=== PATIENT | female | born 1945 | race Caucasian/White ===

== ENCOUNTER 2017-12-02 13:54 | Inpatient (IN) | payer MEDICARE ==
--- NOTE | 2017-12-02 14:13 | ED ---
Lower Extremity Injury HPI - General Source: patient, RN notes reviewed Mode of arrival: wheelchair Limitations: no limitations <Ilia Guevara - Last Filed: 12/02/17 14:41> <Adal Candelario - Last Filed: 12/02/17 20:02> - General Chief Complaint: Extremity Injury, Lower Stated Complaint: hip injury Time Seen by Provider: 12/02/17 14:05 - History of Present Illness Initial Comments: This is a 72-year-old female presents emergency Department chief complaint right hip pain. Patient states that her dog was running around and knocked her over onto her right hip. She denies any head injury. Patient states that she has an abrasion to her right elbow and complains of severe right hip pain. She denies any head injury, neck pain or any back pain. Patient states she cannot bear any weight on her right hip. Patient has had no prior orthopedic surgeries. (Ilia Guevara) - Related Data Home Medications Medication Instructions Recorded Confirmed Cholecalciferol (Vitamin D3) 2,000 unit PO DAILY 12/02/17 12/02/17 [Vitamin D3] Citalopram Hydrobromide [CeleXA] 40 mg PO DAILY 12/02/17 12/02/17 Levothyroxine Sodium [Synthroid] 112 mcg PO DAILY 12/02/17 12/02/17 Lisinopril [Zestril] 10 mg PO DAILY 12/02/17 12/02/17 Ranitidine HCl [Zantac] 150 mg PO DAILY 12/02/17 12/02/17 Allergies Allergy/AdvReac Type Severity Reaction Status Date / Time shrimp Allergy Swelling Verified 12/02/17 17:11 Review of Systems ROS Other: All systems not noted in ROS Statement are negative. <Ilia Guevara - Last Filed: 12/02/17 14:41> ROS Other: All systems not noted in ROS Statement are negative. <Adal Candelario - Last Filed: 12/02/17 20:02> ROS Statement: Those systems with pertinent positive or pertinent negative responses have been documented in the HPI. Past Medical History Past Medical History: Hypertension, Thyroid Disorder History of Any Multi-Drug Resistant Organisms: None Reported Past Surgical History: Tubal Ligation Past Psychological History: Anxiety, Depression Smoking Status: Current every day smoker Past Alcohol Use History: None Reported Past Drug Use History: Marijuana <PaolaIlia M - Last Filed: 12/02/17 14:41> - Past Family History Mother Family Medical History: Coronary Artery Disease (CAD) <Adal Candelario N - Last Filed: 12/02/17 20:02> General Exam Limitations: no limitations General appearance: alert, in no apparent distress Neck exam: Present: normal inspection, full ROM. Absent: tenderness, meningismus, lymphadenopathy Respiratory exam: Present: wheezes. Absent: respiratory distress, rales, rhonchi, stridor, chest wall tenderness Cardiovascular Exam: Present: regular rate, normal rhythm, normal heart sounds. Absent: systolic murmur, diastolic murmur, rubs, gallop, clicks GI/Abdominal exam: Present: soft, normal bowel sounds. Absent: distended, tenderness, guarding, rebound, rigid Extremities exam: Present: other (Small abrasion to the right elbow region, full range of motion of upper extremities, tenderness of the right hip, patient is in a flexed position limited range of motion secondary pain) Back exam: Present: full ROM. Absent: tenderness, paraspinal tenderness, vertebral tenderness Neurological exam: Present: alert, oriented X3, CN II-XII intact, reflexes normal. Absent: motor sensory deficit Skin exam: Present: warm, dry, intact, normal color. Absent: rash <PaolaIlia M - Last Filed: 12/02/17 14:41> Vital Signs 12/02/17 12/02/17 12/02/17 14:00 14:20 15:28 Temperature 98.7 F 98.5 F Pulse Rate 69 71 Pulse Rate [ 69 Right Dorsalis Pedis] Respiratory 16 12 18 Rate Blood Pressure 132/67 138/66 O2 Sat by Pulse 97 97 97 Oximetry 12/02/17 15:57 Temperature 98.6 F Pulse Rate Pulse Rate [ Right Dorsalis Pedis] Respiratory Rate Blood Pressure O2 Sat by Pulse Oximetry Medical Decision Making <PaolaIlia Kline - Last Filed: 12/02/17 14:41> - Lab Data Result diagrams: 12/02/17 14:46 12/02/17 14:46 <Adal Candelario N - Last Filed: 12/02/17 20:02> - Lab Data Lab Results 12/02/17 12/02/17 12/02/17 Range/Units 14:46 14:46 14:46 WBC 23.1 H (3.8-10.6) k/uL RBC 4.41 (3.80-5.40) m/uL Hgb 13.2 (11.4-16.0) gm/dL Hct 41.4 (34.0-46.0) % MCV 93.9 (80.0-100.0) fL MCH 29.9 (25.0-35.0) pg MCHC 31.9 (31.0-37.0) g/dL RDW 13.1 (11.5-15.5) % Plt Count 386 (150-450) k/uL Neutrophils % 87 % Lymphocytes % 6 % Monocytes % 6 % Eosinophils % 1 % Basophils % 0 % Neutrophils # 20.0 H (1.3-7.7) k/uL Lymphocytes # 1.4 (1.0-4.8) k/uL Monocytes # 1.4 H (0-1.0) k/uL Eosinophils # 0.1 (0-0.7) k/uL Basophils # 0.1 (0-0.2) k/uL PT 10.2 (9.0-12.0) sec INR 1.0 (<1.2) APTT 24.7 (22.0-30.0) sec Sodium 134 L (137-145) mmol/L Potassium 4.4 (3.5-5.1) mmol/L Chloride 103 (98-107) mmol/L Carbon Dioxide 23 (22-30) mmol/L Anion Gap 8 mmol/L BUN 13 (7-17) mg/dL Creatinine 0.82 (0.52-1.04) mg/dL Est GFR (CKD-EPI)AfAm 82 (>60 ml/min/1.73 sqM) Est GFR (CKD-EPI)NonAf 71 (>60 ml/min/1.73 sqM) Glucose 104 H (74-99) mg/dL Calcium 9.1 (8.4-10.2) mg/dL Total Bilirubin 0.3 (0.2-1.3) mg/dL AST 20 (14-36) U/L ALT 27 (9-52) U/L Alkaline Phosphatase 49 (38-126) U/L Total Protein 6.4 (6.3-8.2) g/dL Albumin 3.7 (3.5-5.0) g/dL - EKG Data EKG Comments: EKG performed at 14:36 normal sinus rhythm with a rate of 74 NH 146 QRS 78 QT/ QTC 378/419 (Ilia Guevara) Disposition Time of Disposition: 14:22 <Ilia Guevara - Last Filed: 12/02/17 14:41> <Adal Candelario - Last Filed: 12/02/17 20:02> Clinical Impression: Closed right hip fracture Disposition: ADMITTED IP TO THIS [facility] Condition: Stable
[2017-12-02] MEDS ORDERED: ONDANSETRON 4 MG/2 ML VIAL IVP STA (14:21)
[2017-12-02] MEDS ORDERED: MORPHINE SULFATE 4 MG/ML SYRINGE IVP STA (14:21)
[2017-12-02] MEDS ORDERED: HYDROcodone/APAP 5-325MG 1 EACH TAB PO PRN (14:22)
[2017-12-02] MEDS ORDERED: NALOXONE 0.4 MG/ML 1 ML VIAL IV PRN (14:22)
[2017-12-02] MEDS ORDERED: ONDANSETRON 4 MG/2 ML VIAL IVP PRN (14:22)
[2017-12-02] MEDS ORDERED: LORazepam 2 MG/ML INJ IV PRN (14:22)
[2017-12-02] MEDS ORDERED: DIPH,PERTUS(ACELL)TETVAC-LF 0.5 ML VIAL IM ONE (14:23)
--- NOTE | 2017-12-02 14:27 | XR ---
EXAMINATION TYPE: AP view pelvis and 2 views right hip DATE OF EXAM: 12/02/2017 COMPARISON: NONE HISTORY: FINDINGS: Moderate superolateral joint space narrowing at the right hip. There is an angulated and impacted fra cture of the base of the cervical right femoral neck. IMPRESSION: Impacted and angulated basicervical fracture right femoral neck. Underlying mild to moderate right hi p OA.
--- NOTE | 2017-12-02 14:55 | XR ---
EXAMINATION TYPE: XR chest 1V DATE OF EXAM: 12/02/2017 COMPARISON: NONE HISTORY: 72-year-old female preop clearance for hip fracture, pain TECHNIQUE: Single frontal view of the chest is obtained. FINDINGS: Heart normal size. Elongation/ectasia of the thoracic aorta with episodic calcifications. Diffuse int erstitial prominence has a chronic appearance. AP peripheral lung densities related to overlying soft tissue. No consolidation or pleural effusion. IMPRESSION: Chronic changes and tortuous/ectatic thoracic aorta. No acute process seen.
[2017-12-02 14:58] LABS: Basophils # (A) 0.1 k/uL (0-0.2); Basophils % (A) 0 %; Eosinophils # (A) 0.1 k/uL (0-0.7); Eosinophils % (A) 1 %; HCT 41.4 % (34.0-46.0); HGB 13.2 gm/dL (11.4-16.0); Lymphocytes # (A) 1.4 k/uL (1.0-4.8); Lymphocytes % (A) 6 %; MCH 29.9 pg (25.0-35.0); MCHC 31.9 g/dL (31.0-37.0); MCV 93.9 fL (80.0-100.0); Mean Platelet Volume 6.3; Monocytes # (A) 1.4 k/uL (0-1.0); Monocytes % (A) 6 %; Neutrophils % (A) 87 %; Platelet Count 386 k/uL (150-450); RBC 4.41 m/uL (3.80-5.40); RDW 13.1 % (11.5-15.5); WBC 23.1 k/uL (3.8-10.6)
[2017-12-02 15:10] LABS: Albumin 3.7 g/dL (3.5-5.0); Calcium 9.1 mg/dL (8.4-10.2); Potassium 4.4 mmol/L (3.5-5.1); Total Bilirubin 0.3 mg/dL (0.2-1.3); Total Protein 6.4 g/dL (6.3-8.2)
[2017-12-02 15:12] LABS: Partial Thromboplastin Time 24.7 sec (22.0-30.0); Prothrombin Time 10.2 sec (9.0-12.0)
[2017-12-02 15:30] LABS: Appearance,Urine Clear (Clear); Bilirubin,Urine Negative (Negative); Blood,Urine Negative (Negative); Color,Urine Yellow; Glucose,Urine (UA) Negative (Negative); Ketones,Urine Negative (Negative); Leukocyte Esterase,Urine Negative (Negative); Nitrite,Urine Negative (Negative); PH, Urine 5.5 (5.0-8.0); Protein,Urine Negative (Negative); Specific Gravity,Urine 1.016 (1.001-1.035); Urobilinogen,Urine <2.0 mg/dL (<2.0)
--- NOTE | 2017-12-02 15:52 | CT ---
EXAMINATION TYPE: CT hip RT wo con DATE OF EXAM: 12/02/2017 COMPARISON: Radiograph same day HISTORY: 72-year-old female Right hip pain TECHNIQUE: Contiguous axial scanning of the right hip without IV contrast. Coronal and sagittal recon structions performed. CT DLP: 392 mGycm Automated exposure control for dose reduction was used. FINDINGS: Redemonstrated impacted and angulated basicervical fracture of the femoral neck. There is fracture ex tension into the intertrochanteric region, for example, refer to coronal image 18 and coronal image 2 0. There is no disruption of the lateral wall but there is some posteromedial fracture extension. Add itional comminution extends along the superior margin of the femoral neck to the head neck junction, referred to coronal image 19. Associated soft tissue swelling. Rossi catheter is present. IMPRESSION: 1. IMPACTED AND ANGULATED BASICERVICAL FRACTURE OF THE FEMORAL NECK. 2. HOWEVER, THERE IS FRACTURE EXTENSION INTO THE INTERTROCHANTERIC REGION. THE LATERAL WALL IS INTACT BUT FRACTURE EXTENDS TO THE POSTEROMEDIAL ASPECT. 3. THERE IS ADDITIONAL COMMINUTION EXTENDING ALONG THE SUPERIOR MARGIN OF THE FEMORAL NECK TO THE FEM ORAL HEAD NECK JUNCTION. 4. MODERATE TO SEVERE FOCAL JOINT SPACE NARROWING ALONG THE WEIGHTBEARING ASPECT OF THE HIP JOINT.
[2017-12-02 17:10] VITALS: BMI 24.7
[2017-12-02] MEDS: MORPHINE SULFATE 4 MG/ML SYRINGE IV PRN ×2 (17:16→22:07)
[2017-12-02] MEDS: SODIUM CHLORIDE 0.9% 1,000 ML IV SCH (20:51)
[2017-12-02] MEDS: FAMOTIDINE 20 MG/2 ML VIAL IV SCH (20:51)
[2017-12-03] MEDS: MORPHINE SULFATE 4 MG/ML SYRINGE IV PRN ×2 (03:37→07:36)
[2017-12-03] MEDS: LEVOTHYROXINE 112 MCG TAB PO SCH (06:15)
--- NOTE | 2017-12-03 07:23 | P.CONS ---
History of Present Illness - Reason for Consult Consult date: 12/03/17 - Chief Complaint Hip pain - History of Present Illness 72 years old female with past medical history of hypothyroidism, hypertension, depression presents in after a mechanical fall when her dog tripped her over. Patient is still very functionally active patient does activities including lawn maintenance, taking care of her grandkids, doesn't use any cane or walker at baseline. Patient denies any history of angina, shortness of breath, palpitation, recent syncope, history of cancer. Patient was brought in by her cousin due to increased hip pain following the fall on the right hip. On evaluation patient is in significant pain on movement and avoids any movement in the bed to prevent the pain. 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 EKG was done which is normal sinus rhythm with no bundle branch block was stopped at team is consulted for medical clearance prior to surgery. Patient denies any history of stress test or echocardiogram done in the past. Had no recent admission in the past year. Review of Systems Constitutional: Denies chills, Denies fever, Denies lethargy, Denies malaise, Denies poor appetite, Denies weakness, Denies weight loss Eyes: denies decreased vision, denies diplopia, denies discharge, denies pain Ears: deny: decreased hearing Ears, nose, mouth and throat: Denies dental pain, Denies headache, Denies nasal discharge, Denies nose pain Cardiovascular: Denies chest pain, Denies decreased exercise tolerance, Denies edema, Denies high blood pressure, Denies irregular heart beat, Denies palpitations, Denies paroxysmal nocturnal dyspnea, Denies rapid heart beat, Denies shortness of breath Respiratory: Denies congestion, Denies cough, Denies cough with sputum, Denies dyspnea, Denies home oxygen, Denies wheezing Gastrointestinal: Denies abdominal pain, Denies change in bowel habits, Denies coffee ground emesis, Denies early satiety, Denies excessive gas, Denies heartburn, Denies hematemesis, Denies hematochezia, Denies loss of appetite, Denies nausea, Denies vomiting Genitourinary: Denies dysuria, Denies flank pain, Denies kidney stones, Denies menorrhagia, Denies urgency, Denies urinary frequency Musculoskeletal: Endorses endorses gait dysfunction, Denies limitation of motion , endorses hip pain Denies morning stiffness, Denies muscle cramps Integumentary: Denies rash, Denies wounds, Denies brittle nails, Denies change in hair/nails, Denies darkening of skin Neurological: Denies change in speech, Denies double vision, Denies gait dysfunction, Denies loss of vision, Denies numbness, Denies paralysis, Denies paresthesias, Denies seizures Psychiatric: Denies anxiety, Denies depression Endocrine: Denies excessive sweating, Denies excessive thirst, Denies high blood sugars, Denies palpitations Hematologic/Lymphatic: Denies easy bruising, Denies lymphadenopathy Past Medical History Past Medical History: Hypertension, Thyroid Disorder History of Any Multi-Drug Resistant Organisms: None Reported Past Surgical History: Tubal Ligation Past Anesthesia/Blood Transfusion Reactions: No Reported Reaction Past Psychological History: Anxiety, Depression Smoking Status: Current every day smoker (Smokes one pack a day for more than 60 years) Past Alcohol Use History: None Reported Past Drug Use History: Marijuana Additional History: Patient lives alone, does not use cane or walker or oxygen. - Past Family History Mother Family Medical History: Coronary Artery Disease (CAD) (At the age 65) Sister(s) Family Medical History: Cancer (Other Sr. at the age of 70 from liver cancer), Coronary Artery Disease (CAD) (History that at age of 45 from coronary artery disease) Father Family Medical History: Coronary Artery Disease (CAD) ( at the age of 65) Son(s) Family Medical History: Cancer ( at the age of 45) Daughter(s) Family Medical History: Unable to Obtain (Daughter from drug overdose) Medications and Allergies Home Medications Medication Instructions Recorded Confirmed Type Cholecalciferol (Vitamin D3) 2,000 unit PO DAILY 12/02/17 12/02/17 History [Vitamin D3] Citalopram Hydrobromide [CeleXA] 40 mg PO DAILY 12/02/17 12/02/17 History Levothyroxine Sodium [Synthroid] 112 mcg PO DAILY 12/02/17 12/02/17 History Lisinopril [Zestril] 10 mg PO DAILY 12/02/17 12/02/17 History Ranitidine HCl [Zantac] 150 mg PO DAILY 12/02/17 12/02/17 History Allergies Allergy/AdvReac Type Severity Reaction Status Date / Time shrimp Allergy Swelling Verified 12/02/17 17:11 Physical Exam Vitals: Vital Signs Temp Pulse Pulse Pulse Resp BP BP 12/03/17 00:14 98.3 F 78 16 111/66 12/02/17 20:00 98.4 F 69 16 124/73 12/02/17 15:57 98.6 F 12/02/17 15:28 71 18 138/66 12/02/17 14:20 98.5 F 69 12 12/02/17 14:00 98.7 F 69 16 132/67 Pulse Ox 12/03/17 00:14 94 L 12/02/17 20:00 94 L 12/02/17 15:57 12/02/17 15:28 97 12/02/17 14:20 97 12/02/17 14:00 97 Intake and Output 12/02/17 12/03/17 12/03/17 22:59 06:59 14:59 Output Total 800 1750 Balance -800 -1750 Output: Urine 800 1750 Other: Voiding Method Indwelling Catheter Weight 61.235 kg - Constitutional General appearance: cooperative, no acute distress, obese - EENT Eyes: anicteric sclerae, PERRLA, normal appearance ENT: hearing grossly normal - Neck Neck: no lymphadenopathy, normal ROM, no other, no rigidity, no stridor, no thyromegaly - Respiratory Respiratory: bilateral: CTA, negative: diminished, dullness, rales, rhonchi - Cardiovascular Rhythm: regular Heart sounds: normal: S1, S2 Abnormal Heart Sounds: no systolic murmur, no diastolic murmur, no rub, no S3 Gallop, no S4 Gallop, no click, no other - Gastrointestinal General gastrointestinal: normal bowel sounds, soft - Integumentary Integumentary: no rash - Neurologic Neurologic: CNII-XII intact - Musculoskeletal Musculoskeletal: Laying comfortably in bed with significant movement on moving the right leg on abduction or adduction or flexion or extension. Able to move her toes without any difficulty denies any numbness or tingling in the lower extremity - Psychiatric Psychiatric: A&O x's 3, appropriate affect Results CBC & Chem 7: 12/02/17 14:46 12/02/17 14:46 Labs: Abnormal Lab Results - Last 24 Hours (Table) 12/02/17 12/02/17 Range/Units 14:46 14:46 WBC 23.1 H (3.8-10.6) k/uL Neutrophils # 20.0 H (1.3-7.7) k/uL Monocytes # 1.4 H (0-1.0) k/uL Sodium 134 L (137-145) mmol/L Glucose 104 H (74-99) mg/dL Assessment and Plan Plan: #1 right hip pain secondary to fracture of the femoral neck extending to the intertrochanteric region. Patient is scheduled for surgery this morning systolic she is medically cleared to undergo surgery does have a low cardiac risk less than 1% for cardiac events. EKG is normal sinus rhythm. Patient never had any chest pain or shortness of breath to suspect cardiac etiology but does have significant family history of coronary artery disease, age that puts her at some risk. Incentive spirometry. Pain management per primary team #2 hypothyroidism continue Synthyroid. TSH and T4 ordered. #3 leukocytosis of unclear etiology likely secondary to dehydration as patient' s previous leukocytes has been normal. Repeat CBC this morning is pending. #4 hypertension continue lisinopril #5 DVT prophylaxis post surgery per primary team continue SCDs for now #6 GI prophylaxis with Pepcid 20 mg daily #7 CODE STATUS full code Patient is medically cleared for surgery. Thank you for the consult. We will be happy to assist in patient's medical needs that the patient is in the hospital
[2017-12-03] MEDS: FAMOTIDINE 20 MG/2 ML VIAL IV SCH ×2 (07:38→21:50)
[2017-12-03] MEDS: SODIUM CHLORIDE 0.9% 1,000 ML IV SCH (07:38)
[2017-12-03 07:43] LABS: Basophils # (A) 0.1 k/uL (0-0.2); Basophils % (A) 0 %; Eosinophils # (A) 0.2 k/uL (0-0.7); Eosinophils % (A) 1 %; HCT 38.5 % (34.0-46.0); HGB 12.7 gm/dL (11.4-16.0); Lymphocytes # (A) 1.3 k/uL (1.0-4.8); Lymphocytes % (A) 10 %; MCH 30.9 pg (25.0-35.0); MCHC 33.1 g/dL (31.0-37.0); MCV 93.2 fL (80.0-100.0); Mean Platelet Volume 6.5; Monocytes # (A) 1.1 k/uL (0-1.0); Monocytes % (A) 8 %; Neutrophils # (A) 10.8 k/uL (1.3-7.7); Neutrophils % (A) 80 %; Platelet Count 326 k/uL (150-450); RBC 4.13 m/uL (3.80-5.40); RDW 13.2 % (11.5-15.5); WBC 13.5 k/uL (3.8-10.6)
[2017-12-03 07:52] LABS: Anion Gap 7 mmol/L; Blood Urea Nitrogen 8 mg/dL (7-17); Calcium 8.7 mg/dL (8.4-10.2); Carbon Dioxide 24 mmol/L (22-30); Chloride 104 mmol/L (98-107); Glucose 107 mg/dL (74-99); Potassium 4.6 mmol/L (3.5-5.1); Sodium 135 mmol/L (137-145)
[2017-12-03] MEDS ORDERED: ePHEDrine SULFATE/0.9% NACL/PF 50 MG/5 ML SYRINGE IV ONE (08:30)
[2017-12-03] MEDS ORDERED: PHENYLEPHRINE-0.9% NACL SYG 1 MG/10 ML SYRINGE ONE (08:30)
[2017-12-03] MEDS ORDERED: MIDAZOLAM 2 MG/2 ML VIAL ONE (08:30)
[2017-12-03] MEDS ORDERED: IV FLUID CONTINUATION 950 ML IV ONE ×2 (08:30)
[2017-12-03] MEDS ORDERED: PROPOFOL 10 MG/ML 20 ML VIAL IV ONE (08:30)
[2017-12-03] MEDS ORDERED: fentaNYL (PF) 50 MCG/ML 2 ML AMP ONE (08:30)
[2017-12-03] MEDS ORDERED: traMADol 50 MG TAB PO PRN (08:33)
[2017-12-03] MEDS ORDERED: HYDROcodone/APAP 7.5-325MG 1 EACH TAB PO PRN (08:33)
[2017-12-03] MEDS ORDERED: MAGNESIUM HYDROXIDE 2,400 MG/10 ML CUP PO PRN (08:33)
[2017-12-03] MEDS ORDERED: HYDROmorphone 1 MG/ML 1 ML SYRINGE IVP PRN ×2 (08:33)
[2017-12-03] MEDS ORDERED: TEMAZEPAM 15 MG CAP PO PRN (08:33)
[2017-12-03] MEDS ORDERED: SODIUM CHLORIDE 0.9% 50 ML with ceFAZolin 2,000 MG IV ONE ×2 (08:45)
[2017-12-03] MEDS ORDERED: ceFAZolin 1,000 MG in SODIUM CHLORIDE 0.9% 1,000 ML IRRIGATION ONE (09:19)
--- NOTE | 2017-12-03 09:56 | XR ---
EXAMINATION TYPE: XR Hip Limited RT, FL guidance operating room DATE OF EXAM: 12/03/2017 COMPARISON: NONE HISTORY: 72-year-old female right hip fracture fixation FINDINGS: Intramedullary nail and screw fixation of the proximal right femoral fracture. Proximal portion of th e intramedullary nail appears somewhat superior in position. FLUOROSCOPY Fluoroscopy time of 1 minute 45 seconds was used during right proximal femoral fixation. 3 image/s d ocument/s the procedure. IMPRESSION: Intraoperative fluoroscopy as above.
--- NOTE | 2017-12-03 09:58 | HP ---
HISTORY AND PHYSICAL DATE OF VISIT: December 03, 2017. CHIEF COMPLAINT: Right hip pain. HISTORY OF PRESENT ILLNESS: Elba is a very pleasant 72-year-old female who lives independently at home by herself. Yesterday, she had a mixup with her dog and she fell onto her right hip. She had right hip pain, was unable ambulate. She was brought to [facility] via ambulance. Workup including x-rays revealed a right basicervical/intertrochanteric hip fracture. She was admitted to my service for management of her hip fracture. MEDICAL HISTORY: Coronary artery disease, hypertension, thyroid disorder. SURGICAL HISTORY: She had tubal ligation. SOCIAL HISTORY: Smoking stasis: She is a current everyday smoker. MEDICATIONS: Levothyroxine, lisinopril, citalopram. PHYSICAL EXAM: T-max 98.7, blood pressure 132/67, pulse 69. White count 23.1, hemoglobin 13.2, platelets 386. INR is 1.0. Examination: She has no pain with palpation. Range of motion of all long bones and joints with the exception of the right hip. The skin over the right hip is intact with no evidence of breakdown. She has no pain with palpation of the distal femur, the knee, the tibia, fibula, or the ankle or foot. She has intact flexion-extension, inversion-eversion of the ankle. She has intact flexion-extension of all of her toes. She has intact sensation to the medial, lateral, plantar and 1st dorsal web space of the foot. She has brisk capillary refill in all digits. X-RAYS: X-rays and CT scan reviewed. She has a very low basicervical with extension into the hip fracture with extension into the intertrochanteric region. IMPRESSION: Right intertrochanteric hip fracture. RECOMMENDATIONS: I had a long discussion with Elba with regard to treatment options. She is an independent ambulator. The strong recommendation was to proceed forward with intramedullary hip screw fixation for right basicervical/intertrochanteric hip fracture. The risks were discussed in detail. These risks include, but are not limited to risk of infection, nerve damage, bleeding, pain, and a small risk of deep vein thrombosis which could lead to fatal pulmonary embolism. Further risks include failure of the implant and failure of the fracture to heal, both of which could necessitate further surgery for her hip fracture. All of these questions with regards to the risks of the procedure were answered to her satisfaction. Appropriate informed consent was obtained. We will proceed forward later this morning with fixation for her right hip fracture. All of her questions were answered to her satisfaction. JACKSON / MAVIS: [id number] /
[2017-12-03] MEDS ORDERED: SODIUM CHLORIDE 0.9% 1,000 ML IV ONE (10:06)
[2017-12-03] MEDS ORDERED: ONDANSETRON 4 MG/2 ML VIAL IVP ONE (10:19)
--- NOTE | 2017-12-03 10:43 | OP ---
OPERATIVE REPORT DATE OF PROCEDURE: December 03, 2017. PREOPERATIVE DIAGNOSIS: Right basicervical/intertrochanteric hip fracture. POSTOPERATIVE DIAGNOSIS: Right basicervical/intertrochanteric hip fracture. PROCEDURE: Right intramedullary hip screw fixation for right intertrochanteric hip fracture. SURGEON: Wai Gold MD. UNDERWRITING CONSULTANT: MIKA Redmond. ANESTHESIA: Spinal with sedation. ESTIMATED BLOOD LOSS: 100 mL. TOURNIQUET: None. DRAINS: None. COMPLICATIONS: None apparent. DISPOSITION: Postanesthesia care unit. INDICATIONS: Joanne is a very pleasant 72-year-old female. She is an independent ambulator. She slipped over her dogs at home. She fell onto her right hip. She is brought to [facility] via ambulance. Workup including x-rays revealed a right intertrochanteric hip fracture. She is independent ambulator at home. Recommendation was for intramedullary hip screw fixation for right intertrochanteric hip fracture. The risks of procedure were discussed with her in detail. These risks include, but are not limited to risk of infection, nerve damage, bleeding, pain and risk of small risk of deep vein thrombosis which could lead to fatal pulmonary embolism. Further risks include failure of the hardware or failure of the fracture to heal both of which could necessitate further surgical procedures. All of Joanne's questions with regards to the procedure were answered to her satisfaction. Appropriate informed consent was obtained. DESCRIPTION OF PROCEDURE: The patient identified in preoperative holding area. Surgical sites marked by both the patient and myself. She was given 2 g of Ancef IV for prophylactic purposes. She was then transported to the operative suite. She was placed supine on the operative table. General anesthetic was administered dosed per the Anesthesia Department without apparent complication. She was then placed onto the fracture table well-padded in preparation for surgery. The fracture was reduced with traction and rotation. The anatomic reduction was confirmed with fluoroscopic imaging. The patient's right lower extremity was then prepped and draped in usual sterile fashion. Standard surgical pause undertaken to ensure that we were operating the correct site and that appropriate preoperative antibiotics were given. All staff were in agreement and we proceeded. The tip of the greater trochanter was identified via fluoroscopy. A 2 to 3 cm incision extending from the tip of the greater trochanter proximally was made with a 15 blade scalpel. Dissection was then carried down sharply through the tensor fascia. The tensor fascia was incised in line with the skin incision. This gave me good access to the greater trochanter. The threaded guide pin was then placed on the medial aspect of the greater trochanter and was then advanced down the center of the femur. This was done under fluoroscopic guidance to ensure that it was proper placement of the pin. The starting reamer was then placed over the threaded guide pin. This was done to gain access to the proximal femur. The threaded guide pin was removed and a ball-tipped guidewire was then placed down the shaft of the femur. Intramedullary placement was confirmed with fluoroscopic imaging. I then proceeded to ream the femoral canal. I started with a 9 mm reamer and increased incrementally up to a 13 mm reamer to allow for exceptions of the gamma nail. The contracts representative then opened a 125 degree by 11 mm x 180 mm Luanne Gamma nail. This was assembled on the back table by the senior maintenance technician. The gamma nail was then inserted over the ball-tipped guidewire. The ball-tipped guidewire was then removed. I then made a small second incision on the lateral thigh. The hip screw guide was then placed flush against the lateral wall of the femur. The threaded guide pin was then advanced into the center of the femoral head on both AP and lateral views. The tip-apex distance was appropriate. This was confirmed with both AP and lateral views. I then measured and reamed with the reamer was set to 90 mm. The threaded guide pin was reamed under fluoroscopic imaging. I then had the contracts representative open a 90 mm partially-threaded cannulated hip screw. This was then placed over the threaded guide pin and then advanced into the center of the femoral head. The purchase was excellent. The screw was advanced deep into the center of the femoral head on both AP and lateral views. The tip-apex distance was appropriate. I then placed a set screw. I first compressed the fracture. I then placed the set screw and then the set screw was backed off 1/4 turn to allow for compression of the fracture. I then proceeded to place the distal static locking screw. A third small incision was made on the lateral thigh. A 37.5 mm x 5 mm static locking screw was then placed under standard technique. This was also placed under fluoroscopic guidance to ensure its placement through the nail and that was of appropriate length. At this point time no further work was deemed necessary. The final AP and lateral views were taken. The gamma nail was intramedullary. The distal interlocking screws of appropriate length and through the nail. The hip screw was placed deep into the center of the femoral head on both AP and lateral views. The tip-apex distance was appropriate and the fracture was compressed nicely. At this point time no further work was deemed necessary. The insertion guide was removed. The wounds were thoroughly irrigated with sterile saline solution with antibiotic added. The tensor fascia was closed with 0 Vicryl suture. The subcutaneous tissue closed with 2-0 Vicryl suture. The skin was closed with stainless steel josseline. All sponge and needle counts were deemed correct prior to closure. The patient tolerated the procedure without apparent complication. She was transferred recovery room in stable condition. JACKSON / MAVIS: [id number] /
[2017-12-03] MEDS: LISINOPRIL 10 MG TAB PO SCH (11:01)
[2017-12-03] MEDS: CHOLECALCIFEROL 1,000 UNIT TAB PO SCH (11:04)
[2017-12-03] MEDS: CITALOPRAM HYDROBROMIDE 20 MG TAB PO SCH (11:04)
[2017-12-03] MEDS: ASPIRIN 325 MG TAB PO SCH ×2 (11:04→21:50)
[2017-12-03] MEDS: HYDROmorphone 1 MG/ML 1 ML SYRINGE IVP PRN ×2 (11:19→13:30)
[2017-12-03] MEDS: ceFAZolin IN SWFI 2 GM/20 ML SYRINGE IVP SCH (15:02)
[2017-12-03] MEDS: HYDROcodone/APAP 7.5-325MG 1 EACH TAB PO PRN (19:23)
[2017-12-03] MEDS: SENNOSIDES-DOCUSATE SODIUM 1 EACH TAB PO SCH (21:50)
[2017-12-04] MEDS: SODIUM CHLORIDE 0.9% 1,000 ML IV SCH (00:11)
[2017-12-04] MEDS: ceFAZolin IN SWFI 2 GM/20 ML SYRINGE IVP SCH (00:11)
[2017-12-04] MEDS: HYDROcodone/APAP 7.5-325MG 1 EACH TAB PO PRN ×4 (00:30→17:57)
[2017-12-04] MEDS: LEVOTHYROXINE 112 MCG TAB PO SCH (05:22)
[2017-12-04 07:40] LABS: Basophils % (A) 0 %; Eosinophils # (A) 0.4 k/uL (0-0.7); Eosinophils % (A) 4 %; HCT 31.2 % (34.0-46.0); HGB 10.2 gm/dL (11.4-16.0); Lymphocytes # (A) 1.7 k/uL (1.0-4.8); Lymphocytes % (A) 17 %; MCH 31.5 pg (25.0-35.0); MCHC 32.9 g/dL (31.0-37.0); MCV 95.8 fL (80.0-100.0); Mean Platelet Volume 6.8; Monocytes % (A) 10 %; Neutrophils # (A) 6.8 k/uL (1.3-7.7); Neutrophils % (A) 67 %; Platelet Count 241 k/uL (150-450); RBC 3.25 m/uL (3.80-5.40); RDW 13.3 % (11.5-15.5); WBC 10.1 k/uL (3.8-10.6)
[2017-12-04] MEDS: LISINOPRIL 10 MG TAB PO SCH (09:03)
[2017-12-04] MEDS: CITALOPRAM HYDROBROMIDE 20 MG TAB PO SCH (09:03)
[2017-12-04] MEDS: ASPIRIN 325 MG TAB PO SCH ×2 (09:03→22:49)
[2017-12-04] MEDS: CHOLECALCIFEROL 1,000 UNIT TAB PO SCH (09:03)
[2017-12-04] MEDS: MULTIVITAMINS, THERA 1 EACH TAB PO SCH (09:03)
[2017-12-04] MEDS: FAMOTIDINE 20 MG/2 ML VIAL IV SCH ×2 (09:06→23:15)
--- NOTE | 2017-12-04 11:04 | P.PN ---
Subjective Progress Note Date: 12/04/17 72 years old female with past medical history of hypothyroidism, hypertension, depression presents in after a mechanical fall when her dog tripped her over. Patient is still very functionally active patient does activities including lawn maintenance, taking care of her grandkids, doesn't use any cane or walker at baseline. Patient denies any history of angina, shortness of breath, palpitation, recent syncope, history of cancer. Patient was brought in by her cousin due to increased hip pain following the fall on the right hip. On evaluation patient is in significant pain on movement and avoids any movement in the bed to prevent the pain. 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 EKG was done which is normal sinus rhythm with no bundle branch block was stopped at team is consulted for medical clearance prior to surgery. Patient denies any history of stress test or echocardiogram done in the past. Had no recent admission in the past year. 12/04 Patient is status post right intertrochanteric nail placement for right hip fracture. Pain is controlled with the pain medications. Patient denies any chest pain, shortness of breath, dizziness or lightheadedness. Still has a Rossi catheter in. Is encouraged to increase oral fluid intake. We'll stop IV fluids today. Leukocytosis is improved likely secondary to stress and dehydration. Objective - Vital Signs Vital signs: Vital Signs Temp 98.2 F 12/04/17 07:00 Pulse 85 12/04/17 07:00 Resp 18 12/04/17 07:00 BP 115/66 12/04/17 07:00 Pulse Ox 94 L 12/04/17 07:00 Intake & Output 12/03/17 12/04/17 12/04/17 18:59 06:59 18:59 Intake Total 1791 1200 240 Output Total 550 2500 Balance 1241 -1300 240 Intake: IV 1051 Intake, IV Titration 1200 Amount Sodium Chloride 0.9% 1, 1200 000 ml @ 75 mls/hr IV . [id number] ARLENE Rx#:[id number] Oral 740 240 Output: Urine 450 2500 Estimated Blood Loss 100 Other: Voiding Method Indwelling Catheter Indwelling Catheter Self-Catheterization - Exam - Constitutional General appearance: cooperative, no acute distress, obese - EENT Eyes: anicteric sclerae, PERRLA, normal appearance ENT: hearing grossly normal - Neck Neck: no lymphadenopathy, normal ROM, no other, no rigidity, no stridor, no thyromegaly - Respiratory Respiratory: bilateral: CTA, negative: diminished, dullness, rales, rhonchi - Cardiovascular Rhythm: regular Heart sounds: normal: S1, S2 Abnormal Heart Sounds: no systolic murmur, no diastolic murmur, no rub, no S3 Gallop, no S4 Gallop, no click, no other - Gastrointestinal General gastrointestinal: normal bowel sounds, soft - Integumentary Integumentary: no rash - Neurologic Neurologic: CNII-XII intact - Musculoskeletal Musculoskeletal: Laying comfortably in chair surgical site appears clear of infection, mild inflammation with overlying dressing Able to move her toes without any difficulty denies any numbness or tingling in the lower extremity, pulses palpable , neurovascular function intact - Psychiatric Psychiatric: A&O x's 3, appropriate affect - Labs CBC & Chem 7: 12/04/17 06:16 12/03/17 07:14 Labs: Abnormal Lab Results - Last 24 Hours (Table) 12/04/17 Range/Units 06:16 RBC 3.25 L (3.80-5.40) m/uL Hgb 10.2 L (11.4-16.0) gm/dL Hct 31.2 L (34.0-46.0) % Assessment and Plan Plan: #1 postoperative day one right hip pain secondary to fracture of the femoral neck extending to the intertrochanteric region status post a right intertrochanteric nail. Incentive spirometry. Pain management per primary team stop encourage mobilization. PTOT consult placed #2 hypothyroidism continue Synthyroid. TSH and T4 normal continue the current dose of Synthyroid #3 leukocytosis of unclear etiology likely secondary to dehydration/stress as patient's previous leukocytes has been normal. Resolved hold IV fluids #4 hypertension continue lisinopril, blood pressure stable #5 DVT prophylaxis on aspirin 325 mg twice a day #6 GI prophylaxis with Pepcid 20 mg daily #7 CODE STATUS full code
--- NOTE | 2017-12-04 13:52 | P.PN ---
Subjective Progress Note Date: 12/04/17 Principal diagnosis: S/P Right IT nail Patient is seen at bedside this morning. She is postop day #1 from Right IT nail for right hip fracture. She has pain at the surgical site as expected but denies any new complaints. He denies numbness, tingling or calf pain. Review of systems is negative for fever, chills, chest pain, shortness of breath or other Objective - Vital Signs Vital signs: Vital Signs Temp 98.2 F 12/04/17 07:00 Pulse 85 12/04/17 07:00 Resp 18 12/04/17 07:00 BP 115/66 12/04/17 07:00 Pulse Ox 94 L 12/04/17 07:00 Intake & Output 12/03/17 12/04/17 12/04/17 18:59 06:59 18:59 Intake Total 1791 1200 420 Output Total 550 2500 Balance 1241 -1300 420 Intake: IV 1051 Intake, IV Titration 1200 Amount Sodium Chloride 0.9% 1, 1200 000 ml @ 75 mls/hr IV . [id number] COUNTS INCLUDE 234 BEDS AT [facility] Rx#:[id number] Oral 740 420 Output: Urine 450 2500 Estimated Blood Loss 100 Other: Voiding Method Indwelling Catheter Indwelling Catheter Self-Catheterization - Exam Inspection reveals a benign surgical wound. There is no active bleeding or drainage. Neurovascular status is intact throughout the lower extremity with motor and sensation fully intact. Calf is soft and nontender. 2+ dorsalis pedis pulse and less than 2 second cap refill is present - Constitutional General appearance: Present: no acute distress - Psychiatric Psychiatric: Present: A&O x's 3, appropriate affect, intact judgment & insight - Labs CBC & Chem 7: 12/04/17 06:16 12/03/17 07:14 Labs: Abnormal Lab Results - Last 24 Hours (Table) 12/04/17 Range/Units 06:16 RBC 3.25 L (3.80-5.40) m/uL Hgb 10.2 L (11.4-16.0) gm/dL Hct 31.2 L (34.0-46.0) % Assessment and Plan (1) Closed right hip fracture Narrative/Plan: She will continue with routine postop orthopedic protocol including pain management, wound care, PT, DVT prophylaxis and medical management. Touchdown weightbearing with walker. Expect that she will transfer to home in next few days as she does not desire rehab. Current Visit: Yes Status: Acute Priority: Medium Code(s): S72.001A - FRACTURE OF UNSP PART OF NECK OF RIGHT FEMUR, INIT SNOMED Code(s): 499085481 Time with Patient: Less than 30
[2017-12-04] MEDS: SENNOSIDES-DOCUSATE SODIUM 1 EACH TAB PO SCH (22:49)
[2017-12-05] MEDS: HYDROcodone/APAP 7.5-325MG 1 EACH TAB PO PRN ×3 (03:02→14:27)
[2017-12-05] MEDS: LEVOTHYROXINE 112 MCG TAB PO SCH (06:23)
[2017-12-05 07:23] VITALS: BP 116/70; PULSE 78; RESP 17; TEMP 98
[2017-12-05] MEDS: ASPIRIN 325 MG TAB PO SCH (08:58)
[2017-12-05] MEDS: MULTIVITAMINS, THERA 1 EACH TAB PO SCH (08:58)
[2017-12-05] MEDS: LISINOPRIL 10 MG TAB PO SCH (08:59)
[2017-12-05] MEDS: CITALOPRAM HYDROBROMIDE 20 MG TAB PO SCH (08:59)
[2017-12-05] MEDS: FAMOTIDINE 20 MG/2 ML VIAL IV SCH (08:59)
[2017-12-05] MEDS: CHOLECALCIFEROL 1,000 UNIT TAB PO SCH (08:59)
--- NOTE | 2017-12-05 09:26 | P.DS ---
Providers Date of admission: 12/02/17 14:52 Expected date of discharge: 12/05/17 Attending physician: Wai Gold Consults: 12/02/17 14:22 Consult Physician Stat Consulting Provider: Johnathon Rangel Reason/Comments: Surgical clearance Do you want consulting provider notified?: Yes Primary care physician: Peyman Whitfield - Discharge Diagnosis(es) (1) Closed right hip fracture Patient was admitted to the OR on 12/03/2017 to undergo IT nailing for right hip fracture. She underwent the above procedure which she tolerated well without complication. Postoperative hospital course has remained without complication. On day of discharge she is afebrile, vital signs stable, labs within acceptable ranges, tolerating by mouth meds and diet, voiding without difficulty , positive flatus, denies abdominal pain or calf pain, pain is controlled on oral pain medication and has no new complaints. Wound is benign, neurovascular status is intact, calf is soft and nontender, abdomen soft and nontender. Review of systems is negative for numbness, tingling, fever, chills, chest pain , shortness breath, nausea, vomiting, dizziness, headaches, slurred speech or other. Current Visit: Yes Status: Acute Priority: Medium Procedures: IT nailing of right hip fracture Patient Condition at Discharge: Good Plan - Discharge Summary Discharge Rx Participant: No New Discharge Prescriptions: No Action Ranitidine HCl [Zantac] 150 mg PO DAILY Lisinopril [Zestril] 10 mg PO DAILY Levothyroxine Sodium [Synthroid] 112 mcg PO DAILY Citalopram Hydrobromide [CeleXA] 40 mg PO DAILY Cholecalciferol (Vitamin D3) [Vitamin D3] 2,000 unit PO DAILY Discharge Medication List Cholecalciferol (Vitamin D3) [Vitamin D3] 2,000 unit PO DAILY 12/02/17 [History] Citalopram Hydrobromide [CeleXA] 40 mg PO DAILY 12/02/17 [History] Levothyroxine Sodium [Synthroid] 112 mcg PO DAILY 12/02/17 [History] Lisinopril [Zestril] 10 mg PO DAILY 12/02/17 [History] Ranitidine HCl [Zantac] 150 mg PO DAILY 12/02/17 [History] Follow up Appointment(s)/Referral(s): Venango,Peyman, DO [Primary Care Provider] - 1-2 days Wai Gold MD [STAFF PHYSICIAN] - 1 Week Activity/Diet/Wound Care/Special Instructions: Touchdown weightbearing with walker at all times F/U with Dr. Gold in office take meds as directed may shower in 3 days if no bleeding Discharge Disposition: HOME WITH HOME HEALTH SERVICES
== END 2017-12-05 15:15 | disposition home health service (06) | DRG 482 ==
LOC: EC 13:54 → 3SUR 14:52
PROVIDERS: ADMIT Orthopaedic Surgery Sports Medicine; ATTEND Orthopaedic Surgery Sports Medicine
PROC: 0QSB36Z Reposition Right Lower Femur with Intramedullary Internal Fixation Device, Percutaneous Approach (ICD-10-PCS; principal; 2017-12-02)
DX: S72.141A Displaced intertrochanteric fracture of right femur, initial encounter for closed fracture (principal); W18.30XA Fall on same level, unspecified, initial encounter; D72.829 Elevated white blood cell count, unspecified; E03.9 Hypothyroidism, unspecified; E86.0 Dehydration; F17.210 Nicotine dependence, cigarettes, uncomplicated; I10 Essential (primary) hypertension; I25.10 Atherosclerotic heart disease of native coronary artery without angina pectoris; S50.311A Abrasion of right elbow, initial encounter; Z60.2 Problems related to living alone; Z79.899 Other long term (current) drug therapy; Z80.0 Family history of malignant neoplasm of digestive organs; Z82.49 Family history of ischemic heart disease and other diseases of the circulatory system; Z98.51 Tubal ligation status; Z79.890 Hormone replacement therapy; Z91.013 Allergy to seafood
CPT/HCPCS: 36415; 51702; 71045; 73501; 73502; 80048; 80053; 81003; 84443; 85025; 85610; 85730; 90471; 90715; 93005; 96374; 96375; 99285

== ENCOUNTER 2018-01-15 15:22 | Inpatient (IN) | payer MEDICARE ==
[2018-01-15] MEDS ORDERED: MORPHINE SULFATE 4 MG/ML SYRINGE IVP STA (16:18)
[2018-01-15] MEDS ORDERED: ONDANSETRON 4 MG/2 ML VIAL IVP STA (16:18)
[2018-01-15] MEDS ORDERED: NALOXONE 0.4 MG/ML 1 ML VIAL IV PRN (16:25)
--- NOTE | 2018-01-15 16:25 | ED ---
General Adult HPI - General Source: patient, family Mode of arrival: wheelchair Limitations: no limitations <Korin Metz - Last Filed: 01/15/18 17:10> <Adal Morley - Last Filed: 01/15/18 18:22> - General Chief complaint: Extremity Injury, Lower Stated complaint: rt hip problem Time Seen by Provider: 01/15/18 16:10 - History of Present Illness Initial comments: 72-year-old female patient presents the emergency department today sent by her orthopedic physician for admission. Plan is to perform partial right hip replacement in the morning. Patient had a fracture to the right hip and subsequent IM nailing at the beginning of December. Patient states that she's been having difficulties and pain with the hip since the surgery. States that she did see her orthopedic physician Dr. Gold today who is scheduling her for surgery tomorrow. Patient states she is currently having pain to the right hip. She denies any numbness or tingling to the leg. She denies any new injury to the hip. Patient denies any recent rash, fever, chills, shortness breath, chest pain, abdominal pain, nausea, vomiting, diarrhea, constipation, back pain, numbness, tingling, dizziness, weakness, hematuria, dysuria, urinary urgency, urinary frequency, headache, visual changes, or any other complaints. (Korin Metz) - Related Data Home Medications Medication Instructions Recorded Confirmed Cholecalciferol (Vitamin D3) 2,000 unit PO DAILY 12/02/17 12/02/17 [Vitamin D3] Citalopram Hydrobromide [CeleXA] 40 mg PO DAILY 12/02/17 12/02/17 Levothyroxine Sodium [Synthroid] 112 mcg PO DAILY 12/02/17 12/02/17 Lisinopril [Zestril] 10 mg PO DAILY 12/02/17 12/02/17 Ranitidine HCl [Zantac] 150 mg PO DAILY 12/02/17 12/02/17 Previous Rx's Medication Instructions Recorded Aspirin 325 mg PO BID #60 tab 12/05/17 Docusate [Colace] 100 mg PO BID #60 capsule 12/05/17 HYDROcodone/APAP 5-325MG [[place] 1 tab PO Q4HR PRN #42 tab 12/05/17 5-325] Allergies Allergy/AdvReac Type Severity Reaction Status Date / Time Fish Containing Products Allergy Swelling Verified 01/15/18 16:12 [Fish] shrimp Allergy Swelling Verified 12/02/17 17:11 Review of Systems ROS Other: All systems not noted in ROS Statement are negative. <Korin Metz - Last Filed: 01/15/18 17:10> ROS Other: All systems not noted in ROS Statement are negative. <Adal Morley - Last Filed: 01/15/18 18:22> ROS Statement: Those systems with pertinent positive or pertinent negative responses have been documented in the HPI. Past Medical History Past Medical History: Hypertension, Thyroid Disorder History of Any Multi-Drug Resistant Organisms: None Reported Past Surgical History: Orthopedic Surgery, Tubal Ligation Additional Past Surgical History / Comment(s): right hip pain Past Anesthesia/Blood Transfusion Reactions: No Reported Reaction Past Psychological History: Anxiety, Depression Smoking Status: Current every day smoker Past Alcohol Use History: None Reported Past Drug Use History: Marijuana - Past Family History Mother Family Medical History: Coronary Artery Disease (CAD) (At the age 65) Sister(s) Family Medical History: Cancer (Other Sr. at the age of 70 from liver cancer), Coronary Artery Disease (CAD) (History that at age of 45 from coronary artery disease) Father Family Medical History: Coronary Artery Disease (CAD) ( at the age of 65) Son(s) Family Medical History: Cancer ( at the age of 45) Daughter(s) Family Medical History: Unable to Obtain (Daughter from drug overdose) <Korin Metz - Last Filed: 01/15/18 17:10> General Exam Limitations: no limitations General appearance: alert, in no apparent distress, other (Physical well- developed, well-nourished adult female patient in no acute distress. Vital signs upon presentation are temperature 98.5F, pulse 71, respirations 18, blood pressure 114/66, pulse ox 98% on room air.) Eye exam: Present: normal appearance, PERRL, EOMI. Absent: scleral icterus, conjunctival injection, periorbital swelling ENT exam: Present: normal exam, normal oropharynx, mucous membranes moist Respiratory exam: Present: normal lung sounds bilaterally. Absent: respiratory distress, wheezes, rales, rhonchi, stridor Cardiovascular Exam: Present: regular rate, normal rhythm, normal heart sounds. Absent: systolic murmur, diastolic murmur, rubs, gallop, clicks GI/Abdominal exam: Present: soft, normal bowel sounds. Absent: distended, tenderness, guarding, rebound, rigid Extremities exam: Present: normal inspection, full ROM, normal capillary refill , other (Skin to the right leg is pink, warm, and dry. Cap refills less than 3 seconds. Pedal pulses 2+.). Absent: tenderness, pedal edema, joint swelling, calf tenderness Neurological exam: Present: alert, oriented X3, CN II-XII intact Psychiatric exam: Present: normal affect, normal mood Skin exam: Present: warm, dry, intact, normal color. Absent: rash <Korin Metz - Last Filed: 01/15/18 17:10> Course <Korin Metz - Last Filed: 01/15/18 17:10> <Adal Morley - Last Filed: 01/15/18 18:22> Vital Signs 01/15/18 16:08 Temperature 98.5 F Pulse Rate 71 Respiratory 18 Rate Blood Pressure 114/66 O2 Sat by Pulse 98 Oximetry - Reevaluation(s) Reevaluation #1: 01/15/18 17:00 ENGINEERING TECHNICIAN supervision: I proceeded [id number] evaluation the patient and did examine the patient. I reviewed and agree with the MP findings including all diagnostic interpretation treatment plans is written unless otherwise stated. Patient does have right sided hip pain she is scheduled for hemiarthroplasty tomorrow. She will be given IV pain medication. 01/15/18 18:22 (Adal Morley) EKG Findings - EKG Comments: EKG Findings:: EKG obtained at 1639 shows normal sinus rhythm with a ventricular rate is 76, IA interval 126, QRS duration 84, QT 384, QTC 432. No evidence of ST elevation or depression. <Korin Metz - Last Filed: 01/15/18 17:10> Medical Decision Making <Korin Metz - Last Filed: 01/15/18 17:10> - Lab Data Result diagrams: 01/15/18 17:00 01/15/18 17:00 <Adal Morley - Last Filed: 01/15/18 18:22> - Medical Decision Making 72-year-old female patient presents emergency department today for evaluation of increased right hip pain and admission for orthopedic surgery in the morning. She is currently complaining of increased right hip pain. She is neurovascularly intact. Did discuss the case with [facility], we'll admit in order presurgical labs for clearance. To Dr. Rangel will be consulted for preoperative clearance. Patient is aware of plan and is agreeable. (Korin Metz) - Lab Data Lab Results 01/15/18 01/15/18 01/15/18 Range/Units 17:00 17:00 17:00 WBC 11.6 H (3.8-10.6) k/uL RBC 4.88 (3.80-5.40) m/uL Hgb 14.7 (11.4-16.0) gm/dL Hct 45.3 (34.0-46.0) % MCV 92.8 (80.0-100.0) fL MCH 30.2 (25.0-35.0) pg MCHC 32.5 (31.0-37.0) g/dL RDW 13.5 (11.5-15.5) % Plt Count 492 H (150-450) k/uL Neutrophils % 73 % Lymphocytes % 19 % Monocytes % 4 % Eosinophils % 1 % Basophils % 1 % Neutrophils # 8.5 H (1.3-7.7) k/uL Lymphocytes # 2.2 (1.0-4.8) k/uL Monocytes # 0.5 (0-1.0) k/uL Eosinophils # 0.2 (0-0.7) k/uL Basophils # 0.1 (0-0.2) k/uL PT (9.0-12.0) sec INR (<1.2) APTT (22.0-30.0) sec Sodium 135 L (137-145) mmol/L Potassium 4.6 (3.5-5.1) mmol/L Chloride 100 (98-107) mmol/L Carbon Dioxide 24 (22-30) mmol/L Anion Gap 11 mmol/L BUN 8 (7-17) mg/dL Creatinine 0.71 (0.52-1.04) mg/dL Est GFR (CKD-EPI)AfAm >90 (>60 ml/min/1.73 sqM) Est GFR (CKD-EPI)NonAf 85 (>60 ml/min/1.73 sqM) Glucose 86 (74-99) mg/dL Calcium 10.4 H (8.4-10.2) mg/dL Total Bilirubin 0.4 (0.2-1.3) mg/dL AST 20 (14-36) U/L ALT 13 (9-52) U/L Alkaline Phosphatase 67 (38-126) U/L Total Protein 8.1 (6.3-8.2) g/dL Albumin 4.8 (3.5-5.0) g/dL Blood Type AB Positive Blood Type Recheck CABO Indicated Antibody Screen NEGATIVE Spec Expiration Date 01/18/2018 - 229901/15/18 Range/Units 17:00 WBC (3.8-10.6) k/uL RBC (3.80-5.40) m/uL Hgb (11.4-16.0) gm/dL Hct (34.0-46.0) % MCV (80.0-100.0) fL MCH (25.0-35.0) pg MCHC (31.0-37.0) g/dL RDW (11.5-15.5) % Plt Count (150-450) k/uL Neutrophils % % Lymphocytes % % Monocytes % % Eosinophils % % Basophils % % Neutrophils # (1.3-7.7) k/uL Lymphocytes # (1.0-4.8) k/uL Monocytes # (0-1.0) k/uL Eosinophils # (0-0.7) k/uL Basophils # (0-0.2) k/uL PT 10.0 (9.0-12.0) sec INR 1.0 (<1.2) APTT 29.3 (22.0-30.0) sec Sodium (137-145) mmol/L Potassium (3.5-5.1) mmol/L Chloride (98-107) mmol/L Carbon Dioxide (22-30) mmol/L Anion Gap mmol/L BUN (7-17) mg/dL Creatinine (0.52-1.04) mg/dL Est GFR (CKD-EPI)AfAm (>60 ml/min/1.73 sqM) Est GFR (CKD-EPI)NonAf (>60 ml/min/1.73 sqM) Glucose (74-99) mg/dL Calcium (8.4-10.2) mg/dL Total Bilirubin (0.2-1.3) mg/dL AST (14-36) U/L ALT (9-52) U/L Alkaline Phosphatase (38-126) U/L Total Protein (6.3-8.2) g/dL Albumin (3.5-5.0) g/dL Blood Type Blood Type Recheck Antibody Screen Spec Expiration Date Disposition Decision to Admit Reason: Admit from EC Decision Date: 01/15/18 Decision Time: 17:11 <Korin Metz - Last Filed: 01/15/18 17:10> <Adal Morley - Last Filed: 01/15/18 18:22> Clinical Impression: Right hip pain Disposition: ADMITTED IP TO THIS [facility] Condition: Serious Referrals: Peyman Whitfiled DO [Primary Care Provider] - 1-2 days
[2018-01-15 17:16] LABS: Basophils # (A) 0.1 k/uL (0-0.2); Basophils % (A) 1 %; Eosinophils # (A) 0.2 k/uL (0-0.7); Eosinophils % (A) 1 %; HCT 45.3 % (34.0-46.0); HGB 14.7 gm/dL (11.4-16.0); Lymphocytes # (A) 2.2 k/uL (1.0-4.8); Lymphocytes % (A) 19 %; MCH 30.2 pg (25.0-35.0); MCHC 32.5 g/dL (31.0-37.0); MCV 92.8 fL (80.0-100.0); Mean Platelet Volume 6.9; Monocytes # (A) 0.5 k/uL (0-1.0); Monocytes % (A) 4 %; Neutrophils # (A) 8.5 k/uL (1.3-7.7); Neutrophils % (A) 73 %; Platelet Count 492 k/uL (150-450); RBC 4.88 m/uL (3.80-5.40); RDW 13.5 % (11.5-15.5); WBC 11.6 k/uL (3.8-10.6)
[2018-01-15 17:25] LABS: Partial Thromboplastin Time 29.3 sec (22.0-30.0)
[2018-01-15 17:28] LABS: ALT 13 U/L (9-52); AST 20 U/L (14-36); Albumin 4.8 g/dL (3.5-5.0); Alkaline Phosphatase 67 U/L (38-126); Anion Gap 11 mmol/L; Blood Urea Nitrogen 8 mg/dL (7-17); Calcium 10.4 mg/dL (8.4-10.2); Carbon Dioxide 24 mmol/L (22-30); Chloride 100 mmol/L (98-107); Glucose 86 mg/dL (74-99); Potassium 4.6 mmol/L (3.5-5.1); Sodium 135 mmol/L (137-145); Total Bilirubin 0.4 mg/dL (0.2-1.3); Total Protein 8.1 g/dL (6.3-8.2)
--- NOTE | 2018-01-15 17:37 | XR ---
EXAMINATION: XR chest 1V DATE AND TIME: 01/15/2018 5:05 PM CLINICAL INDICATION: Pain TECHNIQUE: AP upright portable COMPARISON: 12/02/2017 FINDINGS: There are vertically oriented interfaces laterally, on the right and left. The interface is not hyper dense, and lung markings appear to be peripheral to the interfaces. Therefore, these findings usually represent skin folds - instead of pneumothorax. This can be proven with repeat radiograph or bilater al decubital radiographs. The lungs are clear. The cardiac silhouette is not enlarged. The skeletal structures and soft tissues are negative for acute findings. IMPRESSION: No definite acute process. Apparent skin folds, as discussed.
[2018-01-15] MEDS ORDERED: HYDROmorphone 1 MG/ML 1 ML SYRINGE IVP STA (20:09)
[2018-01-15] MEDS: MORPHINE SULFATE 4 MG/ML SYRINGE IV PRN (21:03)
[2018-01-16] MEDS: MORPHINE SULFATE 4 MG/ML SYRINGE IV PRN (07:30)
--- NOTE | 2018-01-16 09:22 | P.CONS ---
History of Present Illness - Reason for Consult Consult date: 01/16/18 Medical management Requesting physician: Wai Gold - Chief Complaint Right hemiarthroplasty - History of Present Illness This is a 72-year-old female one of Dr. Whitfield with a previous medical history significant for hypertension and hypertensive cardiovascular disease, hyperlipidemia, hypothyroidism, patient fell in December after she tripped over her dog and ended up with the right eye and nail patient has been complaining of increased pain in the right hip ended up seeing Dr. Gold yesterday and had x-rays that documented slipping of the anil and he was recommended for the patient to go to the ER for right hip hemiarthroplasty that will be scheduled on today with Dr. Gold. Patient is sitting up in bed in no apparent distress she denies any chest pain or shortness breath, she had no abdominal pain nausea vomiting or diarrhea she continues to smoke about a pack every day since she was 14-year-old patient does not appear to be in acute congestive heart failure ,her EKG was reviewed showed normal sinus rhythm without evidence of acute abnormalities ,patient is going for moderate risk surgery there is no contraindication for the proposed surgical intervention at this point surgery mechanical risk of a few medications that the patient is aware of and willing to proceed. Review of Systems Constitutional: Denies chronic headaches, Denies lethargy, Denies weakness, Denies weight gain Eyes: denies blurred vision Ears: deny: decreased hearing Ears, nose, mouth and throat: Denies dysphagia, Denies neck lump, Denies sore throat, Denies vertigo Cardiovascular: Reports decreased exercise tolerance, Reports high blood pressure, Denies chest pain, Denies phlebitis, Denies rapid heart beat, Denies shortness of breath, Denies syncope Respiratory: Denies congestion, Denies cough with sputum, Denies home oxygen, Denies sleep apnea, Denies snoring, Denies wheezing Gastrointestinal: Denies abdominal pain, Denies diarrhea, Denies nausea, Denies vomiting Genitourinary: Denies dysuria, Denies hematuria Menstruation: Reports postmenopausal Musculoskeletal: right: hip pain, hip stiffness, hip swelling, absent: ankle pain, ankle stiffness, ankle swelling, elbow pain, elbow stiffness, elbow swelling, foot pain, foot stiffness, foot swelling, hand pain, hand stiffness, hand swelling, knee pain, knee stiffness, knee swelling, shoulder pain, shoulder stiffness, shoulder swelling, wrist pain, wrist stiffness, wrist swelling Integumentary: Denies pruritus, Denies rash Neurological: Denies numbness, Denies weakness Psychiatric: Denies anxiety, Denies depression Endocrine: Denies fatigue, Denies weight change Past Medical History Past Medical History: GERD/Reflux, Hypertension, Osteoarthritis (OA), Thyroid Disorder History of Any Multi-Drug Resistant Organisms: None Reported Past Surgical History: Orthopedic Surgery, Tubal Ligation Additional Past Surgical History / Comment(s): right hip pain Past Anesthesia/Blood Transfusion Reactions: No Reported Reaction Past Psychological History: Anxiety, Depression Smoking Status: Current every day smoker Past Alcohol Use History: None Reported Past Drug Use History: Marijuana - Past Family History Mother Family Medical History: Coronary Artery Disease (CAD) Sister(s) Family Medical History: Cancer, Coronary Artery Disease (CAD) Father Family Medical History: Coronary Artery Disease (CAD) Son(s) Family Medical History: Cancer Daughter(s) Family Medical History: Unable to Obtain Medications and Allergies Home Medications Medication Instructions Recorded Confirmed Type Cholecalciferol (Vitamin D3) 2,000 unit PO DAILY 12/02/17 01/15/18 History [Vitamin D3] Citalopram Hydrobromide [CeleXA] 40 mg PO DAILY 12/02/17 01/15/18 History Levothyroxine Sodium [Synthroid] 112 mcg PO DAILY 12/02/17 01/15/18 History Lisinopril [Zestril] 10 mg PO DAILY 12/02/17 01/15/18 History Ranitidine HCl [Zantac] 150 mg PO DAILY 12/02/17 01/15/18 History Allergies Allergy/AdvReac Type Severity Reaction Status Date / Time Fish Containing Products Allergy Swelling Verified 01/15/18 18:39 [Fish] shrimp Allergy Swelling Verified 01/15/18 18:39 Physical Exam Vitals: Vital Signs Temp Pulse Pulse Resp BP BP Pulse Ox 01/16/18 07:32 98.3 F 73 16 93/56 93 L 01/16/18 00:08 97.9 F 72 16 97/59 93 L 01/15/18 23:30 16 01/15/18 21:48 16 01/15/18 21:30 98.3 F 73 18 114/59 96 01/15/18 16:08 98.5 F 71 18 114/66 98 Intake and Output 10/15/18 10/16/18 10/16/18 22:59 06:59 14:59 Intake Total 460 Balance 460 Intake: Intake, IV Titration 160 Amount Sodium Chloride 0.9% 1, 160 000 ml @ 20 mls/hr IV . Q24H [facility] Rx#:[id number] Oral 300 Other: Voiding Method Bedpan # Voids 1 1 Weight 49.895 kg - Constitutional General appearance: no acute distress, thin - EENT Eyes: anicteric sclerae, EOMI, PERRLA, no ptosis, no scleral icterus, normal appearance ENT: hearing grossly normal, NA/AT, normal oropharynx, no thrush Ears: bilateral: normal - Neck Neck: no lymphadenopathy, normal ROM, no rigidity, no stridor, no thyromegaly Carotids: bilateral: upstroke normal - Respiratory Respiratory: bilateral: diminished, negative: dullness, rales, rhonchi, wheezing , prolonged expiration, prolonged inspiration - Cardiovascular Rhythm: regular Heart sounds: normal: S1, S2 Abnormal Heart Sounds: no systolic murmur, no S3 Gallop, no S4 Gallop - Gastrointestinal General gastrointestinal: no hepatomegaly, normal bowel sounds, no organomegaly , soft, no splenomegaly, no tenderness - Integumentary Integumentary: normal turgor, no rash - Neurologic Neurologic: CNII-XII intact - Musculoskeletal Musculoskeletal: generalized weakness, strength equal bilaterally - Psychiatric Psychiatric: A&O x's 3, appropriate affect Results CBC & Chem 7: 01/15/18 17:00 01/15/18 17:00 Labs: Abnormal Lab Results - Last 24 Hours (Table) 01/15/18 01/15/18 Range/Units 17:00 17:00 WBC 11.6 H (3.8-10.6) k/uL Plt Count 492 H (150-450) k/uL Neutrophils # 8.5 H (1.3-7.7) k/uL Sodium 135 L (137-145) mmol/L Calcium 10.4 H (8.4-10.2) mg/dL Assessment and Plan Assessment: Assessment and plan: 1. Right hip fracture post IM nailing failed going for right hip hemiarthroplasty. Patient is going for moderate risk surgery there is no contraindication for the proposed surgical intervention, patient will need DVT prophylaxis postsurgery, incentive spirometer, physical therapy evaluation and pain management. Patient may require subacute rehabilitation postsurgical intervention. 2. Hypertension and hypertensive cardio vascular disease. Continue lisinopril 10 mg orally once every day. 3. Hypothyroidism. Continue with levothyroxine 112 g orally once every day. 4. GERD. Continue with the H2 talha. 5. DVT prophylaxis. Patient will be started on Lovenox post surgery 30 mg subcutaneously every 12 hours for the next 2 weeks. 6. GI prophylaxis already on H2 talha. 7. Thank you for the consult we will follow the patient with you.
[2018-01-16] MEDS: SODIUM CHLORIDE 0.9% 1,000 ML IV SCH ×2 (10:22→16:16)
--- NOTE | 2018-01-16 10:29 | P.HPOR ---
History of Present Illness H&P Date: 01/15/18 Chief Complaint: S/P Right Hip IM screw Patient is a 72 year old female that is being admitted from our office today. Joanne presented to the office for recheck of her right hip. She is post op intramedullary screw fixation for femoral neck fracture of the right hip, performed on 12/03/17. She has been doing well postoperatively however she is having quite a bit of postoperative pain. She rates her pain at 8/10 today. She has been touch weightbearing with the use of a walker. She denies numbness, tingling, calf pain, fever, chills, chest pain or shortness of breath. X-rays of the right hip and pelvis taken in the office 01/15/18 show there has been collapse and cutting out of the screw. The acetabulum does not appear to be affected too much. She is being admitted for removal of screw/gamma nail and replacement with right hip hemiarthroplasty. Review of Systems All systems: negative Constitutional: Denies chills, Denies fever Eyes: denies blurred vision, denies pain Ears, nose, mouth and throat: Denies headache, Denies sore throat Cardiovascular: Denies chest pain, Denies shortness of breath Respiratory: Denies cough Gastrointestinal: Denies abdominal pain, Denies diarrhea, Denies nausea, Denies vomiting Genitourinary: Denies dysuria, Denies hematuria Musculoskeletal: Denies myalgias Integumentary: Denies pruritus, Denies rash Neurological: Denies numbness, Denies weakness Psychiatric: Denies anxiety, Denies depression Endocrine: Denies fatigue, Denies weight change Past Medical History Past Medical History: GERD/Reflux, Hypertension, Osteoarthritis (OA), Thyroid Disorder History of Any Multi-Drug Resistant Organisms: None Reported Past Surgical History: Orthopedic Surgery, Tubal Ligation Additional Past Surgical History / Comment(s): right hip pain Past Anesthesia/Blood Transfusion Reactions: No Reported Reaction Past Psychological History: Anxiety, Depression Smoking Status: Current every day smoker Past Alcohol Use History: None Reported Past Drug Use History: Marijuana - Past Family History Mother Family Medical History: Coronary Artery Disease (CAD) Sister(s) Family Medical History: Cancer, Coronary Artery Disease (CAD) Father Family Medical History: Coronary Artery Disease (CAD) Son(s) Family Medical History: Cancer Daughter(s) Family Medical History: Unable to Obtain Medications and Allergies Home Medications Medication Instructions Recorded Confirmed Type Cholecalciferol (Vitamin D3) 2,000 unit PO DAILY 12/02/17 01/15/18 History [Vitamin D3] Citalopram Hydrobromide [CeleXA] 40 mg PO DAILY 12/02/17 01/15/18 History Levothyroxine Sodium [Synthroid] 112 mcg PO DAILY 12/02/17 01/15/18 History Lisinopril [Zestril] 10 mg PO DAILY 12/02/17 01/15/18 History Ranitidine HCl [Zantac] 150 mg PO DAILY 12/02/17 01/15/18 History Allergies Allergy/AdvReac Type Severity Reaction Status Date / Time Fish Containing Products Allergy Swelling Verified 01/15/18 18:39 [Fish] shrimp Allergy Swelling Verified 01/15/18 18:39 Physical Examination On examination, the incision is healing well. There is no erythema. No drainage. There is no sign of dehiscence or infection. Neurovascular status is intact with motor and sensation throughout the lower extremity. Calf is soft and nontender. 2+ dorsalis pedis pulse and less than 2 sec cap refill present. Results - Labs Labs: Abnormal Lab Results - Last 24 Hours (Table) 01/15/18 01/15/18 Range/Units 17:00 17:00 WBC 11.6 H (3.8-10.6) k/uL Plt Count 492 H (150-450) k/uL Neutrophils # 8.5 H (1.3-7.7) k/uL Sodium 135 L (137-145) mmol/L Calcium 10.4 H (8.4-10.2) mg/dL H & H 01/15/18 Range/Units 17:00 Hgb 14.7 (11.4-16.0) gm/dL Hct 45.3 (34.0-46.0) % Coagulation 01/15/18 Range/Units 17:00 INR 1.0 (<1.2) Result Diagrams: 01/15/18 17:00 01/15/18 17:00 Assessment and Plan (1) Status post hip surgery Narrative/Plan: Patient is being admitted for medical management, pre-op clearance and pending surgical intervention including removal of IM hip screw and right hip hemiarthroplasty. She is NPO after midnight and case is boarded. Will plan to proceed Monday01/16/18. She will need placement post op Current Visit: Yes Status: Acute Code(s): Z98.890 - OTHER SPECIFIED POSTPROCEDURAL STATES SNOMED Code(s): 105681639 (2) Right hip pain Current Visit: Yes Status: Acute Code(s): M25.551 - PAIN IN RIGHT HIP SNOMED Code(s): 78435372 (3) Closed right hip fracture Current Visit: No Status: Acute Priority: Medium Code(s): S72.001A - FRACTURE OF UNSP PART OF NECK OF RIGHT FEMUR, INIT SNOMED Code(s): 083186395 Time with Patient: Less than 30
[2018-01-16] MEDS ORDERED: IV FLUID CONTINUATION 1,000 ML IV ONE ×2 (11:22→15:32)
[2018-01-16] MEDS: ONDANSETRON 4 MG/2 ML VIAL IVP PRN (11:48)
[2018-01-16] MEDS ORDERED: ceFAZolin 2,000 MG in DEXTROSE/WATER 1 50ML.BAG IVPB STA (12:30)
[2018-01-16] MEDS ORDERED: PROPOFOL 10 MG/ML 20 ML VIAL IV ONE (12:34)
[2018-01-16] MEDS ORDERED: diphenhydrAMINE 50 MG/ML 1 ML VIAL ONE (12:34)
[2018-01-16] MEDS ORDERED: TRANEXAMIC ACID 1,000 MG/10 ML VIAL ONE (12:34)
[2018-01-16] MEDS ORDERED: MIDAZOLAM 2 MG/2 ML VIAL ONE (12:34)
[2018-01-16] MEDS ORDERED: SODIUM CHLORIDE 0.9% 100 ML BAG ONE (12:34)
[2018-01-16] MEDS ORDERED: PHENYLEPHRINE-0.9% NACL SYG 1 MG/10 ML SYRINGE ONE (12:34)
[2018-01-16] MEDS ORDERED: fentaNYL (PF) 50 MCG/ML 2 ML AMP ONE (12:34)
[2018-01-16] MEDS ORDERED: TRANEXAMIC ACID 1,000 MG in SODIUM CHLORIDE 0.9% 50 ML IVPB ONE (12:36)
[2018-01-16] MEDS ORDERED: ceFAZolin IN SWFI 2 GM/20 ML SYRINGE IVP STA (12:37)
[2018-01-16] MEDS ORDERED: LACTATED RINGERS 1,000 ML IV ONE (13:52)
[2018-01-16] MEDS ORDERED: traMADol 50 MG TAB PO PRN (14:45)
[2018-01-16] MEDS ORDERED: TEMAZEPAM 15 MG CAP PO PRN (14:45)
[2018-01-16] MEDS ORDERED: HYDROcodone/APAP 5-325MG 1 EACH TAB PO PRN (14:45)
[2018-01-16] MEDS ORDERED: MAGNESIUM HYDROXIDE 2,400 MG/10 ML CUP PO PRN (14:45)
[2018-01-16] MEDS ORDERED: HYDROmorphone 1 MG/ML 1 ML SYRINGE IVP PRN ×3 (14:45)
--- NOTE | 2018-01-16 15:15 | XR ---
EXAMINATION TYPE: XR Hip Limited RT DATE OF EXAM: 01/16/2018 CLINICAL HISTORY: Right postoperative revision. TECHNIQUE: Single AP portable view of right hip is obtained immediately postoperatively. COMPARISON: None. FINDINGS: Metallic hardware from right hip arthroplasty is seen and appears satisfactory in alignment and position. There is evidence of recent surgery with subcutaneous gas noted laterally. IMPRESSION: Metallic hardware from right hip arthroplasty is satisfactory in position.
[2018-01-16] MEDS: TRANEXAMIC ACID 1,000 MG in SODIUM CHLORIDE 0.9% 50 ML IVPB SCH (16:17)
[2018-01-16] MEDS ORDERED: KETOROLAC 30 MG/ML 1 ML VIAL IVP PRN (16:39)
[2018-01-16] MEDS ORDERED: NALBUPHINE 10 MG/ML VIAL (10ML MDV) IV PRN (16:39)
[2018-01-16] MEDS ORDERED: NALOXONE 0.4 MG/ML 1 ML VIAL IV PRN (16:39)
[2018-01-16] MEDS: diphenhydrAMINE 50 MG/ML 1 ML VIAL IVP PRN (17:09)
[2018-01-16] MEDS: NICOTINE 21MG/24HR PATCH TRANSDERM SCH (17:55)
[2018-01-16] MEDS: MORPHINE SULFATE 2 MG/ML SYRINGE IVP PRN (18:22)
--- NOTE | 2018-01-16 20:22 | OP ---
OPERATIVE REPORT DATE OF PROCEDURE: 01/16/2018. PREOPERATIVE DIAGNOSIS: Failed intramedullary hip screw fixation for right intertrochanteric hip fracture. POSTOPERATIVE DIAGNOSIS: Failed intramedullary hip screw fixation for right intertrochanteric hip fracture. PROCEDURE: 1. Open removal intramedullary hip screw, right hip. 2. Right hip hemiarthroplasty with revision stem. SURGEON: Wai Gold MD. LEGAL COLLECTOR: 1. Ilia Gresham D.O. 2. Suresh Cummins PA-C. ANESTHESIA: Spinal with sedation. ESTIMATED BLOOD LOSS: 200 mL. TOURNIQUET: None. DRAINS: None. COMPLICATIONS: None apparent. DISPOSITION: Postanesthesia care unit. INDICATIONS: Elba is a very pleasant 72-year-old female who underwent intramedullary hip screw fixation for right intertrochanteric hip fracture approximately 6 weeks ago by myself. She presented to my office yesterday with increasing hip pain. The right hip screw had cut out of the femoral head. We admitted her to the hospital from my office yesterday. Recommendation was for removal of the intramedullary hip screw and placement of hemiarthroplasty of the right hip with a revision type stem. The risks of procedure were discussed with Elba in detail. These risks include, but are not limited to risk of infection, nerve damage, bleeding, pain, and a small risk of deep vein thrombosis which could lead to fatal pulmonary embolism. Further risks include possible periprosthetic fracture and instability in the hip. All of Joanne questions with regards to the risks were answered to her satisfaction. Appropriate informed consent was obtained. PROCEDURE: The patient identified in preoperative holding area. Surgical site was marked by both the patient and myself. She was given 2 g of Ancef IV for prophylactic purposes. She was then transported to the operative suite. She was placed supine on the operative table. General anesthetic was then administered and dosed per the Anesthesia Department without apparent complication. She was then taken to the surgical suite where she was placed supine on the operative table. Spinal anesthetic was administered dosed per the Anesthesia Department without apparent complication. The patient was then placed in the left lateral decubitus position well-padded in preparation for surgery. A well-padded axillary roll was placed. Her legs were appropriately padded as well. The patient's right lower extremity was then prepped and draped in usual sterile fashion. Standard surgical pause undertaken to ensure that we were operating the correct site and that appropriate preoperative antibiotics were given. All staff in the room in agreement and we proceeded. The previous incisions were marked with a surgical pen. I then connected the superior two previous incisions. Dissection was carried down sharply to the tensor fascia. The tensor fascia was then incised in line with the incision, which was also in line with the proximal femur. This exposed the underlying trochanteric bursa. I was able to readily identified the tip of the intramedullary hip screw as well as the hip screw itself. I did have the back off the set screw to allow the hip screw to turn. I then easily removed the hip screw. The distal interlocking screw was next removed. I made a small stab incision within the previous scar. This was then removed with a screwdriver. I was then able to bring the intramedullary aspect of the hip screw out through the proximal femur. I then did a Hardinge type approach, anterolateral approach to the hip. The gluteus medius, minimus and anterior capsule were taken off in a sleeve and retracted anteriorly. I then was then able to remove the inupiat femoral head with a corkscrew. The acetabulum was then inspected. The acetabulum was in excellent condition and good cartilage noted throughout. I then proceeded to proceed with placement of the revision hemiarthroplasty stem. The canal was then entered proximally utilizing a metal box maker. I then reamed the femoral canal and then started with a 13 reamer and incrementally increased up to a 21 reamer. The last 2 reamers were done with hand reaming so as to avoid any iatrogenic fracture of the femur. We then trialed with the last reamer in place. A -3 neck and a 44 monopolar head was then utilized and the hip reduced very nicely and was very stable throughout a full range of motion. There was very minimal Shuck. The leg lengths were approximately equal. There was noted because of the extensive intertrochanteric aspect of the fracture was a little fracture that which extended down distally past the lesser trochanter. At this point, I made a decision to place a cable just distal to the lesser trochanter to protect the proximal femur. The cable was passed and not tightened at this time. I then had the traffic representative open a 21 mm x 190 mm [employer] Read[employer] revision type stem. This was then impacted into the proximal femur in approximately 15 degrees of anteversion. Once the stem was seated appropriately, we tightened the cable to the appropriate pressure. I then placed a -3 neck and a 44 monopolar head onto the trunnion of the stem. This was done after drying the trunnion. This was then impacted into place and the hip was reduced. The hip was again taken through full range of motion. The hip was stable throughout a full range of motion. There was minimal Shuck and the leg lengths were approximately equal. At this point time, we proceeded with closure. The wound was thoroughly irrigated with sterile saline solution with antibiotic added via pulse lavage. The gluteus medius, gluteus minimus and the anterior capsule were repaired back to the greater trochanter utilizing #5 Ethibond trans osseous suture. The raphe between the anterior third of the gluteus medius and the posterior 2/3 of the gluteus medius were closed with #1 Vicryl interrupted suture. Again the wound was thoroughly irrigated with sterile saline solution with antibiotic added. The tensor fascia was then closed with a #2 running Quill suture. Again the wound was thoroughly irrigated. The subcutaneous tissue closed with 2-0 Vicryl suture. The skin was closed with a running 3-0 Quill suture. Dermabond was applied to the incision. Sterile compressive dressing was then applied. The patient was placed into a hip abduction pillow. She was then transferred to recovery room in stable condition. All sponge and needle counts were deemed correct prior to closure. The patient tolerated the procedure without apparent complication. MMODL / IJN: [id number] /
[2018-01-16] MEDS: ceFAZolin IN SWFI 2 GM/20 ML SYRINGE IVP SCH (20:49)
[2018-01-16] MEDS: SENNOSIDES-DOCUSATE SODIUM 1 EACH TAB PO SCH (20:49)
[2018-01-17] MEDS: MORPHINE SULFATE 2 MG/ML SYRINGE IVP PRN ×2 (01:18→05:18)
[2018-01-17] MEDS: LEVOTHYROXINE 112 MCG TAB PO SCH (05:18)
[2018-01-17] MEDS: ceFAZolin IN SWFI 2 GM/20 ML SYRINGE IVP SCH (05:20)
[2018-01-17] MEDS: HYDROcodone/APAP 5-325MG 1 EACH TAB PO PRN ×3 (07:44→21:14)
[2018-01-17] MEDS: ONDANSETRON 4 MG/2 ML VIAL IVP PRN (07:44)
[2018-01-17 08:39] LABS: Basophils % (A) 0 %; Eosinophils % (A) 0 %; HCT 34.7 % (34.0-46.0); Lymphocytes # (A) 1.3 k/uL (1.0-4.8); Lymphocytes % (A) 12 %; MCH 30.4 pg (25.0-35.0); MCHC 32.6 g/dL (31.0-37.0); Mean Platelet Volume 7.3; Monocytes # (A) 1.1 k/uL (0-1.0); Monocytes % (A) 10 %; Neutrophils % (A) 76 %; Platelet Count 401 k/uL (150-450); RBC 3.73 m/uL (3.80-5.40); RDW 13.4 % (11.5-15.5); WBC 10.5 k/uL (3.8-10.6)
[2018-01-17 08:41] LABS: HGB 11.3 gm/dL (11.4-16.0)
[2018-01-17] MEDS ORDERED: NICOTINE 21MG/24HR PATCH TRANSDERM SCH (09:00)
[2018-01-17] MEDS: NICOTINE 21MG/24HR PATCH TRANSDERM SCH (09:14)
[2018-01-17] MEDS: FAMOTIDINE 20 MG TAB PO SCH (09:14)
[2018-01-17] MEDS: LISINOPRIL 10 MG TAB PO SCH (09:14)
[2018-01-17] MEDS: CHOLECALCIFEROL 1,000 UNIT TAB PO SCH (09:14)
[2018-01-17] MEDS: CITALOPRAM HYDROBROMIDE 20 MG TAB PO SCH (09:14)
[2018-01-17] MEDS: MULTIVITAMINS, THERA 1 EACH TAB PO SCH (11:09)
--- NOTE | 2018-01-17 12:24 | P.PN ---
Subjective Progress Note Date: 01/17/18 This is a 72-year-old female one of Dr. Whitfield with a previous medical history significant for hypertension and hypertensive cardiovascular disease, hyperlipidemia, hypothyroidism, patient fell in December after she tripped over her dog and ended up with the right eye and nail patient has been complaining of increased pain in the right hip ended up seeing Dr. Gold yesterday and had x-rays that documented slipping of the anil and he was recommended for the patient to go to the ER for right hip hemiarthroplasty that will be scheduled on today with Dr. Gold. Patient is sitting up in bed in no apparent distress she denies any chest pain or shortness breath, she had no abdominal pain nausea vomiting or diarrhea. She continues to smoke about a pack every day since she was 14 but does not appear to be in acute congestive heart failure. EKG was reviewed showed normal sinus rhythm without evidence of acute abnormalities ,patient is going for moderate risk surgery there is no contraindication for the proposed surgical intervention at this point surgery mechanical risk of a few medications that the patient is aware of and willing to proceed. 01/17: Yesterday, patient underwent open removal of intramedullary hip screw in the right and hemiarthroplasty with revision stem was completed successfully by Dr. Gold. Patient has had no postop complications. Vital signs are stable with blood pressure on the lower side, afebrile. White count is normal and hemoglobin 11.3. Patient is currently weight bearing as tolerated and physical therapy to start. Lovenox for DVT prophylaxis. Patient did require nicotine patch which has been started. Patient denies having any chest pain or shortness of breath. She does continue to have pain in the right leg starting from the groin which the groin is improved and down her leg. She has been urinating without any difficulty. She is passing gas but no bowel movement. She states she did not sleep well during the night. Review Of Systems: Constitutional: No fever, no chills, no night sweats. EENT: No headache. No sore throat. Lungs: No shortness of breath, cough, no sputum production. No wheezing. Cardiovascular: No chest pain, no lower extremity edema. No palpitations. No lightheadedness or dizziness. No syncopal episodes. Abdominal: No abdominal pain. No nausea, vomiting. No diarrhea. No constipation. No bloody or tarry stools.. No loss of appetite. Genitourinary: No dysuria, no increased frequency, urgency. No urinary retention. Musculoskeletal: No myalgias. No muscle weakness, no gait dysfunction, no frequent falls. No back pain. No neck pain. Integumentary: No rash or pruritus. No unusual bruising. No change in hair or nails. Objective - Vital Signs Vital signs: Vital Signs Temp 97.6 F 01/17/18 07:31 Pulse 91 01/17/18 07:31 Resp 16 01/17/18 07:31 BP 103/59 01/17/18 07:31 Pulse Ox 93 L 01/17/18 07:31 Intake & Output 01/16/18 01/17/18 01/17/18 18:59 06:59 18:59 Intake Total 1800 1000 Output Total 200 Balance 1600 1000 Intake: IV 1800 Intake, IV Titration 400 Amount Lactated Ringers 1,000 ml 400 @ 0 mls/hr IV .[facility] ONE Rx#:[id number] Oral 600 Output: Estimated Blood Loss 200 Other: Voiding Method Bedpan Bedpan # Voids 0 - Exam General appearance: no acute distress, thin - EENT Eyes: anicteric sclerae, EOMI, PERRLA, no ptosis, no scleral icterus, normal appearance ENT: hearing grossly normal, NA/AT, normal oropharynx, no thrush Ears: bilateral: normal - Neck Neck: no lymphadenopathy, normal ROM, no rigidity, no stridor, no thyromegaly Carotids: bilateral: upstroke normal - Respiratory Respiratory: bilateral: diminished, negative: dullness, rales, rhonchi, wheezing , prolonged expiration, prolonged inspiration - Cardiovascular Rhythm: regular Heart sounds: normal: S1, S2 Abnormal Heart Sounds: no systolic murmur, no S3 Gallop, no S4 Gallop - Gastrointestinal General gastrointestinal: no hepatomegaly, normal bowel sounds, no organomegaly , soft, no splenomegaly, no tenderness - Integumentary Integumentary: normal turgor, no rash - Neurologic Neurologic: CNII-XII intact - Musculoskeletal Musculoskeletal: generalized weakness, strength equal bilaterally - Psychiatric Psychiatric: A&O x's 3, appropriate affect - Labs CBC & Chem 7: 01/17/18 06:36 01/15/18 17:00 Labs: Abnormal Lab Results - Last 24 Hours (Table) 01/17/18 Range/Units 06:36 RBC 3.73 L (3.80-5.40) m/uL Hgb 11.3 L D (11.4-16.0) gm/dL Neutrophils # 8.0 H (1.3-7.7) k/uL Monocytes # 1.1 H (0-1.0) k/uL Assessment and Plan Plan: 1. Right hip fracture post IM nailing failed status post open removal of intramedullary hip screw in the right and hemiarthroplasty with revision stem. Continue DVT prophylaxis postsurgery, incentive spirometry, physical therapy evaluation and pain management. Patient may require subacute rehabilitation postsurgical intervention. 2. Hypertension and hypertensive cardio vascular disease. Continue lisinopril 10 mg orally once every day. 3. Hypothyroidism. Continue with levothyroxine 112 g orally once every day. 4. GERD. Continue with the H2 talha. 5. DVT prophylaxis. Patient will be started on Lovenox post surgery 30 mg subcutaneously every 12 hours for the next 2 weeks. 6. GI prophylaxis already on H2 talha. Discharge plan: To be determined, most likely subacute rehab Impression and plan of care have been directed as dictated by the signing physician. Elba Soliman nurse practitioner acting as scribe for signing physician.
--- NOTE | 2018-01-17 12:53 | P.PN ---
Progress Note - Text Anesthesia POD 1. Patient is status post right hip hemiarthroplasty under spinal anesthesia with intra-thecal preservative free morphine 300 g. Moderate pruritus, good post-op analgesia, and no headache or other complication.
--- NOTE | 2018-01-17 13:54 | P.PN ---
Subjective Progress Note Date: 01/17/18 Principal diagnosis: Right hip fracture, s/p hemiarthroplasty Patient is seen at bedside this morning. She is postop day #1 from removal of IT nail and replacement with hemiarthroplasty. She has pain at the surgical site as expected but denies any new complaints. He denies numbness, tingling or calf pain. Review of systems is negative for fever, chills, chest pain, shortness of breath or other Objective - Vital Signs Vital signs: Vital Signs Temp 97.6 F 01/17/18 07:31 Pulse 91 01/17/18 07:31 Resp 18 01/17/18 11:00 BP 103/59 01/17/18 07:31 Pulse Ox 93 L 01/17/18 07:31 Intake & Output 01/16/18 01/17/18 01/17/18 18:59 06:59 18:59 Intake Total 1800 1000 Output Total 200 Balance 1600 1000 Intake: IV 1800 Intake, IV Titration 400 Amount Lactated Ringers 1,000 ml 400 @ 0 mls/hr IV .[facility] ONE Rx#:[id number] Oral 600 Output: Estimated Blood Loss 200 Other: Voiding Method Bedpan Bedpan # Voids 0 - Exam Inspection reveals a benign surgical wound. There is no active bleeding or drainage. Neurovascular status is intact throughout the lower extremity with motor and sensation fully intact. Calf is soft and nontender. 2+ dorsalis pedis pulse and less than 2 second cap refill is present. - Constitutional General appearance: Present: no acute distress - Labs CBC & Chem 7: 01/17/18 06:36 01/15/18 17:00 Labs: Abnormal Lab Results - Last 24 Hours (Table) 01/17/18 Range/Units 06:36 RBC 3.73 L (3.80-5.40) m/uL Hgb 11.3 L D (11.4-16.0) gm/dL Neutrophils # 8.0 H (1.3-7.7) k/uL Monocytes # 1.1 H (0-1.0) k/uL Assessment and Plan (1) Status post hip surgery Narrative/Plan: She will continue with routine postop orthopedic protocol including pain management, wound care, DVT prophylaxis and medical management. Expect that he will transfer to home in next few days as she does not desire placement Current Visit: Yes Status: Acute Priority: Medium Code(s): Z98.890 - OTHER SPECIFIED POSTPROCEDURAL STATES SNOMED Code(s): 672124428 (2) Right hip pain Current Visit: Yes Status: Acute Priority: Medium Code(s): M25.551 - PAIN IN RIGHT HIP SNOMED Code(s): 47183363 (3) Closed right hip fracture Current Visit: No Status: Acute Priority: Medium Code(s): S72.001A - FRACTURE OF UNSP PART OF NECK OF RIGHT FEMUR, INIT SNOMED Code(s): 444098378
[2018-01-17] MEDS: SODIUM CHLORIDE 0.9% 1,000 ML IV SCH (15:58)
[2018-01-17] MEDS: diphenhydrAMINE 50 MG/ML 1 ML VIAL IVP PRN (16:22)
[2018-01-17] MEDS: ENOXAPARIN 30 MG/0.3 ML SYRINGE SQ SCH (21:15)
[2018-01-17] MEDS: SENNOSIDES-DOCUSATE SODIUM 1 EACH TAB PO SCH (21:15)
[2018-01-18] MEDS: HYDROcodone/APAP 5-325MG 1 EACH TAB PO PRN ×4 (03:05→21:40)
[2018-01-18] MEDS: LEVOTHYROXINE 112 MCG TAB PO SCH (06:06)
[2018-01-18] MEDS: DIAZEPAM 5 MG TAB PO PRN ×2 (06:17→17:00)
[2018-01-18] MEDS: NICOTINE 21MG/24HR PATCH TRANSDERM SCH (07:26)
[2018-01-18] MEDS: CHOLECALCIFEROL 1,000 UNIT TAB PO SCH (07:27)
[2018-01-18] MEDS: ENOXAPARIN 30 MG/0.3 ML SYRINGE SQ SCH ×2 (07:27→19:56)
[2018-01-18] MEDS: LISINOPRIL 10 MG TAB PO SCH (07:28)
[2018-01-18] MEDS: FAMOTIDINE 20 MG TAB PO SCH (07:28)
[2018-01-18] MEDS: CITALOPRAM HYDROBROMIDE 20 MG TAB PO SCH (07:28)
--- NOTE | 2018-01-18 09:39 | P.PN ---
Subjective Progress Note Date: 01/18/18 Principal diagnosis: Right hip fracture, s/p hemiarthroplasty Patient is seen at bedside this morning. She is postop day #2 from removal of IT nail and replacement with hemiarthroplasty at right hip. She has pain at the surgical site as expected but denies any new complaints. She denies numbness, tingling or calf pain. Review of systems is negative for fever, chills, chest pain, shortness of breath or other Objective - Vital Signs Vital signs: Vital Signs Temp 97.8 F 01/18/18 07:15 Pulse 80 01/18/18 07:15 Resp 16 01/18/18 07:15 BP 96/60 01/18/18 07:15 Pulse Ox 97 01/18/18 07:15 Intake & Output 01/17/18 01/18/18 01/18/18 18:59 06:59 18:59 Intake Total 400 Balance 400 Intake: Oral 400 Other: Voiding Method Bedpan Bedpan # Voids 1 3 - Exam Inspection reveals a benign surgical wound. There is no active bleeding or drainage. Neurovascular status is intact throughout the lower extremity with motor and sensation fully intact. Calf is soft and nontender. 2+ dorsalis pedis pulse and less than 2 second cap refill is present. - Constitutional General appearance: Present: no acute distress - Labs CBC & Chem 7: 01/17/18 06:36 01/15/18 17:00 Assessment and Plan (1) Status post hip surgery Narrative/Plan: She will continue with routine postop orthopedic protocol including pain management, wound care, DVT prophylaxis and medical management. Expect that she will transfer to home in next few days as she does not desire placement Current Visit: Yes Status: Acute Priority: Medium Code(s): Z98.890 - OTHER SPECIFIED POSTPROCEDURAL STATES SNOMED Code(s): 497476535 (2) Right hip pain Current Visit: Yes Status: Acute Priority: Medium Code(s): M25.551 - PAIN IN RIGHT HIP SNOMED Code(s): 37440123 (3) Closed right hip fracture Current Visit: No Status: Acute Priority: Medium Code(s): S72.001A - FRACTURE OF UNSP PART OF NECK OF RIGHT FEMUR, INIT SNOMED Code(s): 452375189
[2018-01-18] MEDS: MULTIVITAMINS, THERA 1 EACH TAB PO SCH (12:38)
--- NOTE | 2018-01-18 13:01 | P.PN ---
Subjective Progress Note Date: 01/18/18 This is a 72-year-old female one of Dr. Whitfield with a previous medical history significant for hypertension and hypertensive cardiovascular disease, hyperlipidemia, hypothyroidism, patient fell in December after she tripped over her dog and ended up with the right eye and nail patient has been complaining of increased pain in the right hip ended up seeing Dr. Gold yesterday and had x-rays that documented slipping of the anil and he was recommended for the patient to go to the ER for right hip hemiarthroplasty that will be scheduled on today with Dr. Gold. Patient is sitting up in bed in no apparent distress she denies any chest pain or shortness breath, she had no abdominal pain nausea vomiting or diarrhea. She continues to smoke about a pack every day since she was 14 but does not appear to be in acute congestive heart failure. EKG was reviewed showed normal sinus rhythm without evidence of acute abnormalities ,patient is going for moderate risk surgery there is no contraindication for the proposed surgical intervention at this point surgery mechanical risk of a few medications that the patient is aware of and willing to proceed. 01/17: Yesterday, patient underwent open removal of intramedullary hip screw in the right and hemiarthroplasty with revision stem was completed successfully by Dr. Gold. Patient has had no postop complications. Vital signs are stable with blood pressure on the lower side, afebrile. White count is normal and hemoglobin 11.3. Patient is currently weight bearing as tolerated and physical therapy to start. Lovenox for DVT prophylaxis. Patient did require nicotine patch which has been started. Patient denies having any chest pain or shortness of breath. She does continue to have pain in the right leg starting from the groin which the groin is improved and down her leg. She has been urinating without any difficulty. She is passing gas but no bowel movement. She states she did not sleep well during the night. 01/18: Been hemodynamically stable and afebrile. Pulse ox is 97% on room air. Patient has recently refused to work with PT and OT as she is planning to return home and does not want subacute rehab. Plan is for discharge tomorrow. manager recovery to follow-up regarding home care need Pain appears to be under control at this time and patient is on [place]. Review Of Systems: Constitutional: No fever, no chills, no night sweats. EENT: No headache. No sore throat. Lungs: No shortness of breath, cough, no sputum production. No wheezing. Cardiovascular: No chest pain, no lower extremity edema. No palpitations. No lightheadedness or dizziness. No syncopal episodes. Abdominal: No abdominal pain. No nausea, vomiting. No diarrhea. No constipation. No bloody or tarry stools.. No loss of appetite. Genitourinary: No dysuria, no increased frequency, urgency. No urinary retention. Musculoskeletal: No myalgias. No muscle weakness, no gait dysfunction, no frequent falls. No back pain. No neck pain. Integumentary: No rash or pruritus. No unusual bruising. Objective - Vital Signs Vital signs: Vital Signs Temp 97.8 F 01/18/18 07:15 Pulse 80 01/18/18 07:15 Resp 16 01/18/18 07:15 BP 96/60 01/18/18 07:15 Pulse Ox 97 01/18/18 07:15 Intake & Output 01/17/18 01/18/18 01/18/18 18:59 06:59 18:59 Intake Total 400 Balance 400 Intake: Oral 400 Other: Voiding Method Bedpan Bedpan # Voids 1 3 - Exam General appearance: no acute distress, thin, no acute distress - EENT Eyes: anicteric sclerae, EOMI, PERRLA, no ptosis, no scleral icterus, normal appearance ENT: hearing grossly normal, NA/AT, normal oropharynx, no thrush Ears: bilateral: normal - Neck Neck: no lymphadenopathy, normal ROM, no rigidity, no stridor, no thyromegaly Carotids: bilateral: upstroke normal - Respiratory Respiratory: bilateral: diminished, negative: dullness, rales, rhonchi, wheezing , prolonged expiration, prolonged inspiration - Cardiovascular Rhythm: regular Heart sounds: normal: S1, S2 Abnormal Heart Sounds: no systolic murmur, no S3 Gallop, no S4 Gallop - Gastrointestinal General gastrointestinal: no hepatomegaly, normal bowel sounds, no organomegaly , soft, no splenomegaly, no tenderness - Integumentary Integumentary: normal turgor, no rash - Neurologic Neurologic: CNII-XII intact - Musculoskeletal Musculoskeletal: generalized weakness, strength equal bilaterally - Psychiatric Psychiatric: A&O x's 3, appropriate affect - Labs CBC & Chem 7: 01/17/18 06:36 01/15/18 17:00 Assessment and Plan Plan: 1. Right hip fracture post IM nailing failed status post open removal of intramedullary hip screw in the right and hemiarthroplasty with revision stem. Continue DVT prophylaxis postsurgery, incentive spirometry, physical therapy evaluation and pain management. Patient plans to return home and does not want subacute rehab. 2. Hypertension and hypertensive cardio vascular disease. Continue lisinopril 10 mg orally once every day. 3. Hypothyroidism. Continue with levothyroxine 112 g orally once every day. 4. GERD. Continue with the H2 talha. 5. DVT prophylaxis. Patient will be started on Lovenox post surgery 30 mg subcutaneously every 12 hours for the next 2 weeks. 6. GI prophylaxis already on H2 talha. Discharge plan: Home tomorrow Impression and plan of care have been directed as dictated by the signing physician. Elba Soliman nurse practitioner acting as scribe for signing physician.
[2018-01-18] MEDS: SODIUM CHLORIDE 0.9% 1,000 ML IV SCH (16:21)
[2018-01-18] MEDS: SENNOSIDES-DOCUSATE SODIUM 1 EACH TAB PO SCH (19:56)
[2018-01-19] MEDS: LEVOTHYROXINE 112 MCG TAB PO SCH (04:58)
[2018-01-19] MEDS: HYDROcodone/APAP 5-325MG 1 EACH TAB PO PRN ×2 (04:58→11:18)
[2018-01-19 08:04] LABS: Basophils % (A) 0 %; Eosinophils # (A) 0.1 k/uL (0-0.7); Eosinophils % (A) 1 %; HCT 28.6 % (34.0-46.0); Lymphocytes % (A) 11 %; MCH 31.6 pg (25.0-35.0); MCHC 34.2 g/dL (31.0-37.0); MCV 92.4 fL (80.0-100.0); Mean Platelet Volume 7.1; Monocytes # (A) 0.7 k/uL (0-1.0); Monocytes % (A) 8 %; Neutrophils # (A) 7.4 k/uL (1.3-7.7); Neutrophils % (A) 79 %; Platelet Count 352 k/uL (150-450); RBC 3.09 m/uL (3.80-5.40); RDW 13.7 % (11.5-15.5); WBC 9.4 k/uL (3.8-10.6)
[2018-01-19 08:05] LABS: HGB 9.8 gm/dL (11.4-16.0)
[2018-01-19] MEDS: MULTIVITAMINS, THERA 1 EACH TAB PO SCH (09:02)
[2018-01-19] MEDS: CITALOPRAM HYDROBROMIDE 20 MG TAB PO SCH (09:02)
[2018-01-19] MEDS: FAMOTIDINE 20 MG TAB PO SCH (09:02)
[2018-01-19] MEDS: LISINOPRIL 10 MG TAB PO SCH (09:03)
[2018-01-19] MEDS: CHOLECALCIFEROL 1,000 UNIT TAB PO SCH (09:03)
[2018-01-19] MEDS: ENOXAPARIN 30 MG/0.3 ML SYRINGE SQ SCH (09:03)
[2018-01-19] MEDS: NICOTINE 21MG/24HR PATCH TRANSDERM SCH (09:07)
--- NOTE | 2018-01-19 12:59 | P.PN ---
Subjective Progress Note Date: 01/19/18 This is a 72-year-old female one of Dr. Whitfield with a previous medical history significant for hypertension and hypertensive cardiovascular disease, hyperlipidemia, hypothyroidism, patient fell in December after she tripped over her dog and ended up with the right eye and nail patient has been complaining of increased pain in the right hip ended up seeing Dr. Gold yesterday and had x-rays that documented slipping of the anil and he was recommended for the patient to go to the ER for right hip hemiarthroplasty that will be scheduled on today with Dr. Gold. Patient is sitting up in bed in no apparent distress she denies any chest pain or shortness breath, she had no abdominal pain nausea vomiting or diarrhea. She continues to smoke about a pack every day since she was 14 but does not appear to be in acute congestive heart failure. EKG was reviewed showed normal sinus rhythm without evidence of acute abnormalities ,patient is going for moderate risk surgery there is no contraindication for the proposed surgical intervention at this point surgery mechanical risk of a few medications that the patient is aware of and willing to proceed. 01/17: Yesterday, patient underwent open removal of intramedullary hip screw in the right and hemiarthroplasty with revision stem was completed successfully by Dr. Gold. Patient has had no postop complications. Vital signs are stable with blood pressure on the lower side, afebrile. White count is normal and hemoglobin 11.3. Patient is currently weight bearing as tolerated and physical therapy to start. Lovenox for DVT prophylaxis. Patient did require nicotine patch which has been started. Patient denies having any chest pain or shortness of breath. She does continue to have pain in the right leg starting from the groin which the groin is improved and down her leg. She has been urinating without any difficulty. She is passing gas but no bowel movement. She states she did not sleep well during the night. 01/18: Been hemodynamically stable and afebrile. Pulse ox is 97% on room air. Patient has recently refused to work with PT and OT as she is planning to return home and does not want subacute rehab. Plan is for discharge tomorrow. senior [employer] to follow-up regarding home care need Pain appears to be under control at this time and patient is on [place]. 01/19: White count is normal, hemoglobin 9.8. Pulse ox 96% on room air. Vital signs stable and blood pressure remains on the lower side. Patient has been instructed to resume her lisinopril at home. She does not wish to have a nicotine patch. She continues to have pain in the right hip but she states she will manage. Patient is scheduled for discharge home today. No medication changes. Review Of Systems: Constitutional: No fever, no chills. EENT: No headache. No sore throat. Lungs: No shortness of breath, cough, no sputum production. No wheezing. Cardiovascular: No chest pain, no lower extremity edema. No palpitations. No lightheadedness or dizziness. No syncopal episodes. Abdominal: No abdominal pain. No nausea, vomiting. No diarrhea. No constipation. No bloody or tarry stools.. No loss of appetite. Genitourinary: No dysuria, no increased frequency, urgency. No urinary retention. Musculoskeletal: No myalgias. No muscle weakness, no gait dysfunction, no frequent falls. No back pain. No neck pain. Integumentary: No rash or pruritus. No unusual bruising. Objective - Vital Signs Vital signs: Vital Signs Temp 99.1 F 01/18/18 23:52 Pulse 96 01/18/18 23:52 Resp 16 01/18/18 23:52 BP 100/67 01/18/18 23:52 Pulse Ox 96 01/18/18 23:52 Intake & Output 01/18/18 01/19/18 01/19/18 18:59 06:59 18:59 Other: Voiding Method Bedpan Bedpan # Voids 2 1 - Exam General appearance: no acute distress, thin, no acute distress, resting in bed - EENT Eyes: anicteric sclerae, EOMI, PERRLA, no ptosis, no scleral icterus, normal appearance ENT: hearing grossly normal, NA/AT, normal oropharynx, no thrush Ears: bilateral: normal - Neck Neck: no lymphadenopathy, normal ROM, no rigidity, no stridor, no thyromegaly Carotids: bilateral: upstroke normal - Respiratory Respiratory: bilateral: diminished, negative: dullness, rales, rhonchi, wheezing , prolonged expiration, prolonged inspiration - Cardiovascular Rhythm: regular Heart sounds: normal: S1, S2 Abnormal Heart Sounds: no systolic murmur, no S3 Gallop, no S4 Gallop - Gastrointestinal General gastrointestinal: no hepatomegaly, normal bowel sounds, no organomegaly , soft, no splenomegaly, no tenderness - Integumentary Integumentary: normal turgor, no rash - Neurologic Neurologic: CNII-XII intact - Musculoskeletal Musculoskeletal: generalized weakness, strength equal bilaterally - Psychiatric Psychiatric: A&O x's 3, appropriate affect - Labs CBC & Chem 7: 01/19/18 06:53 01/15/18 17:00 Labs: Abnormal Lab Results - Last 24 Hours (Table) 01/19/18 Range/Units 06:53 RBC 3.09 L (3.80-5.40) m/uL Hgb 9.8 L D (11.4-16.0) gm/dL Hct 28.6 L (34.0-46.0) % Assessment and Plan Plan: 1. Right hip fracture post IM nailing failed status post open removal of intramedullary hip screw in the right and hemiarthroplasty with revision stem. Continue DVT prophylaxis postsurgery, incentive spirometry, physical therapy evaluation and pain management. Patient plans to return home and does not want subacute rehab. 2. Hypertension and hypertensive cardio vascular disease. Continue lisinopril 10 mg orally once every day. 3. Hypothyroidism. Continue with levothyroxine 112 g orally once every day. 4. GERD. Continue with the H2 talha. 5. DVT prophylaxis. Patient will be started on Lovenox post surgery 30 mg subcutaneously every 12 hours for the next 2 weeks. 6. GI prophylaxis already on H2 talha. 7. Tobacco use and dependence. Nicotine patch. Discharge plan: Home today Impression and plan of care have been directed as dictated by the signing physician. Elba Soliman nurse practitioner acting as scribe for signing physician.
--- NOTE | 2018-01-19 13:48 | P.DS ---
Providers Date of admission: 01/15/18 18:21 Expected date of discharge: 01/19/18 Attending physician: Wai Gold Consults: 01/15/18 16:21 Consult Physician Stat Consulting Provider: Johnathon Rangel Reason/Comments: Pre-op clearance Do you want consulting provider notified?: Yes Primary care physician: Peyman Whitfield - Discharge Diagnosis(es) (1) Status post hip surgery Patient was admitted to the OR on 01/16/2018 to undergo a removal of IM hip screw and replacement with right hip hemiarthroplasty. He IM hip screw fixation for hip fracture was failing and thus she desired to proceed with elective surgery after given informed consent. She underwent the above procedure which she tolerated well without complication. Postoperative hospital course has remained without complication. On day of discharge she is afebrile, vital signs stable, labs within acceptable ranges, tolerating by mouth meds and diet, voiding without difficulty, positive flatus, denies abdominal pain or calf pain , pain is controlled on oral pain medication and has no new complaints. Wound is benign, neurovascular status is intact, calf is soft and nontender, abdomen soft and nontender. Review of systems is negative for numbness, tingling, fever , chills, chest pain, shortness breath, nausea, vomiting, dizziness, headaches, slurred speech or other. Current Visit: Yes Status: Acute Priority: Medium (2) Right hip pain Current Visit: Yes Status: Acute Priority: Medium (3) Closed right hip fracture Current Visit: No Status: Acute Priority: Medium Procedures: Removal of IM hip screw and replace with right hip hemiarthroplasty Patient Condition at Discharge: Stable Plan - Discharge Summary Discharge Rx Participant: Yes New Discharge Prescriptions: New Aspirin 325 mg PO BID #60 tab HYDROcodone/APAP 5-325MG [[place] 5-325] 1 tab PO Q4HR PRN #42 tab PRN Reason: Pain No Action Ranitidine HCl [Zantac] 150 mg PO DAILY Lisinopril [Zestril] 10 mg PO DAILY Levothyroxine Sodium [Synthroid] 112 mcg PO DAILY Citalopram Hydrobromide [CeleXA] 40 mg PO DAILY Cholecalciferol (Vitamin D3) [Vitamin D3] 2,000 unit PO DAILY Discharge Medication List Cholecalciferol (Vitamin D3) [Vitamin D3] 2,000 unit PO DAILY 12/02/17 [History] Citalopram Hydrobromide [CeleXA] 40 mg PO DAILY 12/02/17 [History] Levothyroxine Sodium [Synthroid] 112 mcg PO DAILY 12/02/17 [History] Lisinopril [Zestril] 10 mg PO DAILY 12/02/17 [History] Ranitidine HCl [Zantac] 150 mg PO DAILY 12/02/17 [History] Aspirin 325 mg PO BID #60 tab 01/19/18 [Rx] HYDROcodone/APAP 5-325MG [[place] 5-325] 1 tab PO Q4HR PRN #42 tab 01/19/18 [Rx] Follow up Appointment(s)/Referral(s): Peyman Whitfield DO [Primary Care Provider] - 1-2 days Wai Gold MD [STAFF PHYSICIAN] - 2 Weeks Activity/Diet/Wound Care/Special Instructions: Take meds as directed F/U with Dr. Gold in office Keep wound clean and dry May shower in 72 hrs if no bleeding Weight bear as tolerated Patient refused home care with physical therapy Discharge Disposition: HOME WITH HOME HEALTH SERVICES
[2018-01-19 14:05] VITALS: BP 95/56; PULSE 94; RESP 12; TEMP 98.9
== END 2018-01-19 16:13 | disposition home health service (06) | DRG 469 ==
LOC: EC 15:22 → 4MS4W 18:21 → 4SSUR 18:46
PROVIDERS: ADMIT Orthopaedic Surgery Sports Medicine; ATTEND Orthopaedic Surgery Sports Medicine
PROC: 0SP904Z Removal of Internal Fixation Device from Right Hip Joint, Open Approach (ICD-10-PCS; 2018-01-16)
PROC: 0SRR01A Replacement of Right Hip Joint, Femoral Surface with Metal Synthetic Substitute, Uncemented, Open Approach (ICD-10-PCS; principal; 2018-01-16 12:30)
DX: T84.84XA Pain due to internal orthopedic prosthetic devices, implants and grafts, initial encounter (principal); S72.141A Displaced intertrochanteric fracture of right femur, initial encounter for closed fracture; I11.9 Hypertensive heart disease without heart failure; E78.5 Hyperlipidemia, unspecified; E03.9 Hypothyroidism, unspecified; L29.9 Pruritus, unspecified; K21.9 Gastro-esophageal reflux disease without esophagitis; M19.91 Primary osteoarthritis, unspecified site; F32.9 Major depressive disorder, single episode, unspecified; F41.9 Anxiety disorder, unspecified; F17.210 Nicotine dependence, cigarettes, uncomplicated; Z71.6 Tobacco abuse counseling; Z79.890 Hormone replacement therapy; Z79.82 Long term (current) use of aspirin; Z79.899 Other long term (current) drug therapy; Z91.81 History of falling; Z98.51 Tubal ligation status; Z91.013 Allergy to seafood; Z91.018 Allergy to other foods; Y83.1 Surgical operation with implant of artificial internal device as the cause of abnormal reaction of the patient, or of later complication, without mention of misadventure at the time of the procedure; Z82.49 Family history of ischemic heart disease and other diseases of the circulatory system; Z80.0 Family history of malignant neoplasm of digestive organs; Z80.9 Family history of malignant neoplasm, unspecified; Z82.0 Family history of epilepsy and other diseases of the nervous system
CPT/HCPCS: 36415; 71045; 73501; 80053; 85025; 85610; 85730; 86850; 86900; 86901; 88305; 88311; 93005; 96374; 96375; 96376; 99285